=== PATIENT | female | born 1975 | race Caucasian/White ===

== ENCOUNTER 2016-07-14 19:05 | Inpatient (IN) | payer BC ==
[~2016-07-14] VITALS: Ht 170.2 cm; Wt 76.2 kg
[~2016-07-14 19:05] MED LIST: ACET500C11 PO; AZAT50TA16 PO; AZTH50T PO; CIPR-17 PO; CLOT10TR11 PO; CPR500T PO; CYCL10TA9 PO; DEXL60CA PO; FEXO1TAB42; FOLI0.4T2; HYDR-2856 PO; HYDR-707 PO; HYDR1CAP2 PO; KETO-22 PO; KETO200T PO; LMTL2.5TRX PO; LORA-794 PO; MESA1.2T PO; METR500T PO; MOTRIM; NAPR220T76 PO; OSLT75C PO; OXC5T PO; PHEN37.582; PRD10T PO; PRD20T PO; PRED10TA PO; PRM5C60 TOP; SERT50TA PO; [UNRECOGNIZED DRUG - OTHER]; ativan; lido; lidocaine viscous PO; oxy
--- OUTSIDE RECORDS SUMMARY | 2016-07-14 19:10 | XMS REPORT | Continuity of Care Document ---
Author Author [facility] Organization [facility] Address Unknown Phone Unavailable Care Team Providers Care Mobile Home Set Up Person Name Role Phone PCP Unavailable Source Comments Some departments are not documenting in the electronic medical record. If you do not see the information that you expected, contact Release of Information in the Health Information Management department at [phone] for further assistance in locating additional records.[facility] Active Allergies and Adverse Reactions Allergen Noted [...]
[2016-07-14] MEDS ORDERED: LACTATED RINGERS 1,000 ML IV ONE (19:25)
[2016-07-14] MEDS ORDERED: METOCLOPRAMIDE INJ 10 MG/2 ML (REGLAN) IVP STA (19:25)
[2016-07-14] MEDS ORDERED: ACETAMINOPHEN 500 MG TAB (TYLENOL) PO ONE (19:30)
[2016-07-14] MEDS ORDERED: ONDANSETRON 4 MG/2 ML (SDV) Z0FRAN IVP ONE (19:30)
[2016-07-14 19:31] LABS: BASOPHILS % (AUTO) 1 % (0-10); EOSINOPHILS # (AUTO) 0.1 10^3/uL (0.0-0.3); EOSINOPHILS % (AUTO) 2 % (0-10); LYMPHOCYTES # (AUTO) 0.8 X 10^3 (1.0-4.0); LYMPHOCYTES % (AUTO) 18 % (12-44); MEAN CORPUSCULAR HEMOGLOBIN 35 PG (25-34); MEAN CORPUSCULAR HGB CONC 34 G/DL (32-36); MEAN CORPUSCULAR VOLUME 103 FL (80-99); MONOCYTES # (AUTO) 0.7 X 10^3 (0.0-1.0); MONOCYTES % (AUTO) 14 % (0-12); NEUTROPHILS % (AUTO) 65 % (42-75); PLATELET COUNT 372 10^3/uL (130-400); RED BLOOD COUNT 3.62 10^6/uL (4.35-5.85); RED CELL DISTRIBUTION WIDTH 14.3 % (10.0-14.5); WHITE BLOOD COUNT 4.6 10^3/uL (4.3-11.0)
--- NOTE | 2016-07-14 19:32 | ED GI ---
General Chief Complaint: Abdominal/GI Problems Stated Complaint: FEVER/VOMITING/HEADACHE Nursing Triage Note: pt reports she was just discharged from [facility] in on 06/29/16 for food poisoning/e. coli. pt reports she started running a fever, having abdominal pain, and vomiting today. Sepsis Screen: Possible Sepsis Risk Source of Information: Patient History of Present Illness Time Seen By Provider: 19:14 Initial Comments PT STATES SHE WAS HOSPITALIZED AT [facility] IN ON 06/29/16 FOR "FOOD POISONING DUE TO E.COLI." WAS DISMISSED WITH RX FOR CIPRO AND FINISHED ON 07/11/16. WAS DOING FINE UNTIL TODAY AND ALL SYMPTOMS RETURNED EXCEPT DIARRHEA--HAS HAD EPIGASTRIC CRAMPING, NAUSEA/VOMITED X 5, FEVER OF 102. HAD NORMAL BM TODAY C/O HEADACHE NO URINARY SYMPTOMS AND VOIDED JUST PRIOR TO ARRIVAL. LMP 2011--S/P ENDOMETRIAL ABLATION, OCCASIONALLY WILL SPOT FOR 1 DAY WOKE UP THIS AM WITH A VERY SORE THROAT WELL HAS TAKEN NOTHING FOR SYMPTOMS ATE PANCAKE AND EGG THIS AM, NUTS AND DRIED FRUIT AROUND NOON--JUST PRIOR TO ONSET OF SYMPTOMS PT HAS CROHN'S DISEASE AND ALL MEDICATIONS HAD BEEN STOPPED WHILE SHE WAS ILL. RESTARTED AZATHIOPRINE THIS AM AROUND 10:00--SYMPTOMS BEGAN A COUPLE OF HOURS LATER. STATES THIS DOES NOT FEEL LIKE A CROHN'S FLARE. NO ONE ELSE HAS BEEN ILL AND ALL ATE THE SAME THINGS. PCP: DR. FOWLER--HAS SEEN HIM IN FOLLOW UP SINCE HOSPITALIZATION Allergies and Home Medications Allergies Coded Allergies: adalimumab (Unverified Allergy, Intermediate, HIVES, 02/25/16) codeine (Unverified Allergy, Unknown, 06/06/14) latex (Unverified Allergy, Unknown, 06/06/14) Uncoded Allergies: SULFA (Allergy, Unknown, 06/06/14) TAPE (Allergy, Unknown, 06/06/14) Home Medications Azathioprine 50 Mg Tablet #0 100 MG PO DAILY Prescribed by: BRIANNA MARTINEZ on 02/25/16 1640 Review of Systems Constitutional: see HPI chills fever EENTM: See HPI Throat Pain Respiratory: No Symptoms ReportedDenies Cough, Denies Shortness of Air Cardiovascular: No Symptoms Reported Gastrointestinal: See HPI Abdominal PainDenies Diarrhea, Nausea Poor Appetite Vomiting Genitourinary: No Symptoms Reported Musculoskeletal: no symptoms reported Skin: no symptoms reported Psychiatric/Neurological: See HPI HeadacheDenies Numbness, Denies Paresthesia , Denies Seizure, Denies Tingling, Denies Tremors, Denies Weakness Endocrine: No Symptoms Reported Hematologic/Lymphatic: No Symptoms Reported Past Zorvnpm-Otuzrr-Odxqey Hx Patient Social History Alcohol Use: Occasionally Uses Recreational Drug Use: No Smoking Status: Never a Smoker Recent Foreign Travel: No Contact w/Someone Who Travel: No Recent Infectious Disease Expo: No Recent Hopitalizations: Yes Physical Abuse Screen: No Sexual Abuse: No Immunizations Up To Date Tetanus Booster (TDap): Unknown Date of Pneumonia Vaccine: Apr 29, 2011 Date of Influenza Vaccine: Apr 12, 2014 Surgeries HX Surgeries: Yes ( X 3, ENDOMETRIAL ABLATION; WISDOM TEETH REMOVED) Surgeries: Section, Tonsillectomy Respiratory Hx Respiratory Disorders: No Cardiovascular Hx Cardiac Disorders: No Neurological Hx Neurological Disorders: No Reproductive System : No Hx Reproductive Disorders: Yes (S/P ENDOMETRIAL ABLATION) Female Reproductive Disorders: Menstrual Problems Genitourinary Hx Genitourinary Disorders: No Gastrointestinal Hx Gastrointestinal Disorders: Yes Gastrointestinal Disorders: Colitis, Crohns Disease Musculoskeletal Hx Musculoskeletal Disorders: No Endocrine Hx Endocrine Disorders: No HEENT HX ENT Disorders: No Cancer Hx Cancer: No Psychosocial Hx Psychiatric Problems: Yes Behavioral Health Disorders: Anxiety, Depression Integumentary HX Skin/Integumentary Disorder: No Blood Transfusions Hx Blood Disorders: No Family Medical History Family Medial History: FH: COPD (chronic obstructive pulmonary disease) 19 FATHER Hypertension 19 MOTHER G8 BROTHER No Family History of: [employer] Coordinator Physical Exam Vital Signs VS - Last 72 Hours, by Label 07/14/16 19:11 Temp 100.9 Pulse 101 Resp 18 B/P 118/72 Pulse Ox 95 O2 Delivery Room Air Capillary Refill : Less Than 3 Seconds General Appearance: WD/WN no apparent distress other (HEAVILY BUNDLED) HEENT: PERRL/EOMI TMs normal pharyngeal erythema Neck: normal inspection Respiratory: normal breath sounds no respiratory distress no accessory muscle use Cardiovascular: regular rate, rhythm no edema no JVD no murmur Gastrointestinal: normal bowel sounds soft no organomegaly no pulsatile massNo distended, No guarding, No rebound, tenderness (EPIGASTRIC)No hernia, No mass Extremities: normal inspection no pedal edema no calf tenderness normal capillary refill Back: no CVA tenderness Neurologic/Psychiatric: product manager II-XII nml as tested no motor/sensory deficits alert oriented x 3 other (ANXIOUS) Skin: normal color warm/dry Progress/Results/Core Measures Results/Orders Lab Results Laboratory Tests Test 07/14/16 19:18 07/14/16 19:30 07/14/16 20:31 Range/Units Alanine Aminotransferase (ALT/SGPT) 487 H 0-55 U/L Albumin 3.7 3.2-4.5 G/DL Alkaline Phosphatase 216 H 40-136 U/L Amylase Level 92 25-125 U/L Anion Gap 11 5-14 MMOL/L Aspartate Amino Transf (AST/SGOT) 1137 H 5-34 U/L BUN/Creatinine Ratio 9 Basophils # (Auto) 0.0 0.0-0.1 10^3/uL Basophils (%) (Auto) 1 0-10 % Blood Urea Nitrogen 8 7-18 MG/DL Calcium Level 9.1 8.5-10.1 MG/DL Carbon Dioxide Level 23 21-32 MMOL/L Chloride Level 104 98-107 MMOL/L Creatinine 0.91 0.60-1.30 MG/DL Eosinophils # (Auto) 0.1 0.0-0.3 10^3/uL Eosinophils (%) (Auto) 2 0-10 % Estimat Glomerular Filtration Rate > 60 Glucose Level 95 70-105 MG/DL Hematocrit 37 35-52 % Hemoglobin 12.5 11.5-16.0 G/DL Lipase 54 8-78 U/L Lymphocytes # (Auto) 0.8 L 1.0-4.0 X 10^3 Lymphocytes (%) (Auto) 18 12-44 % Mean Corpuscular Hemoglobin 35 H 25-34 PG Mean Corpuscular Hemoglobin Concent 34 32-36 G/DL Mean Corpuscular Volume 103 H 80-99 FL Mean Platelet Volume 9.0 7.4-10.4 FL Monocytes # (Auto) 0.7 0.0-1.0 X 10^3 Monocytes (%) (Auto) 14 H 0-12 % Monoscreen NEGATIVE NEGATIVE Neutrophils # (Auto) 3.0 1.8-7.8 X 10^3 Neutrophils (%) (Auto) 65 42-75 % Platelet Count 372 130-400 10^3/uL Potassium Level 3.8 3.6-5.0 MMOL/L Red Blood Count 3.62 L 4.35-5.85 10^6/uL Red Cell Distribution Width 14.3 10.0-14.5 % Serum Test, Qualitative NEGATIVE NEGATIVE Sodium Level 138 135-145 MMOL/L Total Bilirubin 1.4 H 0.1-1.0 MG/DL Total Protein 6.5 6.4-8.2 G/DL White Blood Count 4.6 4.3-11.0 10^3/uL Group A Streptococcus Screen NEGATIVE NEGATIVE Urine Bacteria TRACE /HPF Urine Bilirubin NEGATIVE NEGATIVE Urine Casts NONE /LPF Urine Clarity CLEAR Urine Color YELLOW Urine Crystals NONE /LPF Urine Culture Indicated NO Urine Glucose (UA) NEGATIVE NEGATIVE Urine Ketones NEGATIVE NEGATIVE Urine Leukocyte Esterase NEGATIVE NEGATIVE Urine Mucus NEGATIVE /LPF Urine Nitrite NEGATIVE NEGATIVE Urine Protein 1+ H NEGATIVE Urine RBC NONE /HPF Urine RBC (Auto) NEGATIVE NEGATIVE Urine Specific Tenino 1.015 L 1.016-1.022 Urine Squamous Epithelial Cells 5-10 /HPF Urine Urobilinogen NORMAL NORMAL MG/DL Urine WBC 2-5 /HPF Urine pH 9 5-9 My Orders Orders-CHAVOHERNANDEZ K DO Saline Lock/Iv-Start (07/14/16 19:25) Amylase (07/14/16 19:25) Cbc With Automated Diff (07/14/16 19:25) Comprehensive Metabolic Panel (07/14/16 19:25) Hcg,Qualitative Serum (07/14/16 19:25) Lipase (07/14/16 19:25) Monotest (07/14/16 19:25) Rapid Strep A Screen (07/14/16 19:25) Ua Culture If Indicated (07/14/16 19:25) Blood Culture (07/14/16 19:25) Ondansetron Injection (Zofran Injectio (07/14/16 19:30) Metoclopramide Injection (Reglan Injecti (07/14/16 19:25) Saline Lock/Iv-Start (07/14/16 19:25) Lactated Ringers (Lr 1000 Ml Iv Solution (07/14/16 19:25) Acetaminophen Tablet (Tylenol Tablet) (07/14/16 19:30) Ct Abdomen/Pelvis W (07/14/16 20:05) Hepatitis Panel Acute (07/14/16 20:05) Acute Abd Series (07/14/16 20:05) Ketorolac Injection (Toradol Injection) (07/14/16 20:15) Iohexol Injection (Omnipaque 350 Mg/Ml 1 (07/14/16 20:15) Ns (Ivpb) (Sodium Chloride 0.9% Ivpb Bag (07/14/16 20:15) Us Abdomen Complete 52894 (07/14/16 20:46) Metronidazole 500mg/100ml Ivpb (Flagyl 5 (07/14/16 22:15) Medications Given in ED Current Medications Medications Dose Ordered Sig/Estefany Route Start Time Stop Time Status Last Admin Dose Admin Acetaminophen 1,000 mg ONCE ONCE PO 07/14/16 19:30 07/14/16 19:31 DC 07/14/16 19:38 1,000 MG Iohexol 100 ml ONCE ONCE IV 07/14/16 20:15 07/14/16 20:16 DC 07/14/16 20:19 100 ML Ketorolac Tromethamine 30 mg ONCE ONCE IVP 07/14/16 20:15 07/14/16 20:16 DC 07/14/16 20:11 30 MG Lactated Ringer's 1,000 ml @ 0 mls/hr Q0M ONCE IV 07/14/16 19:25 07/14/16 19:27 DC 07/14/16 19:39 0 MLS/HR Metronidazole 100 ml @ 100 mls/hr ONCE ONCE IV 07/14/16 22:15 07/14/16 23:14 07/14/16 22:24 100 MLS/HR Ondansetron HCl 4 mg 4 mg ONCE ONCE IVP 07/14/16 19:30 07/14/16 19:31 DC 07/14/16 19:38 4 MG Sodium Chloride 100 ml 100 ml ONCE ONCE IV 07/14/16 20:15 07/14/16 20:16 DC 07/14/16 20:19 100 ML Vital Signs/I&O Vital Sign - Last 12Hours 07/14/16 19:11 Temp 100.9 Pulse 101 Resp 18 B/P 118/72 Pulse Ox 95 O2 Delivery Room Air Blood Pressure Mean: 87 Progress Note : Progress Note NAUSEA AND HEADACHE AND ABDOMINAL PAIN EASED AT TIME OF ADMIT. PT SLEPT FOR NEARLY ALL OF ER STAY Diagnostic Imaging Comments CT ABDOMEN/PELVIS--FEW SMALL GALLSTONES, CONSTIPATION OTHERWISE NO ACUTE PROCESS -PER RADIOLOGIST REPORT @ 2046 ACUTE ABDOMEN XRAYS--NO ACUTE PROCESS PER RADIOLOGIST REPORT @ 2129 ABDOMINAL ULTRASOUND--NO ACUTE PROCESS, PER RADIOLOGIST REPORT @ 2156 Reviewed: Reviewed by Me Departure Communication Progress Notes 2199--SPOKE WITH DR. FELDMAN, ACCEPTS PT FOR ADMIT. ORDERS FOR CLINDAMYCIN AND FLAGYL NOTED. Impression Impression: Primary Impression: Elevated liver enzymes Additional Impressions: Nausea & vomiting Epigastric abdominal pain History of Crohn's disease Disposition: ADMITTED INPATIENT Condition: Improved Decision to Admit Reason: Admit from ER (General) Decision to Admit/Date: Jul 14, 2016 Time/Decision to Admit Time: 22:00 Departure-Patient Inst. Referrals: SHARON FOWLER MD (PCP/Family) Primary Care Physician HERNANDEZ TONY DO Jul 14, 2016 19:31
[2016-07-14 19:54] LABS: ALANINE AMINOTRANSFERASE 487 U/L (0-55); ALBUMIN 3.7 G/DL (3.2-4.5); AMYLASE 92 U/L (25-125); ANION GAP 11 MMOL/L (5-14); ASPARTATE AMINO TRANSFERASE 1137 U/L (5-34); BILIRUBIN,TOTAL 1.4 MG/DL (0.1-1.0); BLOOD UREA NITROGEN 8 MG/DL (7-18); BUN/CREATININE RATIO 9; CALCIUM 9.1 MG/DL (8.5-10.1); CARBON DIOXIDE 23 MMOL/L (21-32); CHLORIDE 104 MMOL/L (98-107); CREATININE SERUM 0.91 MG/DL (0.60-1.30); GFR ESTIMATED > 60; GLUCOSE 95 MG/DL (70-105); LIPASE 54 U/L (8-78); POTASSIUM 3.8 MMOL/L (3.6-5.0); SODIUM 138 MMOL/L (135-145); TOTAL PROTEIN 6.5 G/DL (6.4-8.2)
[2016-07-14] MEDS ORDERED: KETOROLAC 30 MG/ML VIAL IVP ONE (20:15)
[2016-07-14] MEDS ORDERED: IOHEXOL 350 MG/ML 100 ML (OMNIPAQUE 350) VIAL IV ONE (20:15)
[2016-07-14] MEDS ORDERED: NS 100 ML (IVPB) BAG IV ONE (20:15)
--- NOTE | 2016-07-14 20:38 | Diagnostic Imaging Report ---
PROCEDURE: CT abdomen and pelvis with contrast. TECHNIQUE: Multiple contiguous axial images were obtained through the abdomen and pelvis after administration of intravenous contrast. INDICATION: Patient states recent food poisoning. Upper abdominal pain with nausea and vomiting. Comparison: 02/16/2012. Findings: The lung bases are clear. The liver appears normal. The gallbladder is normal. The bile ducts are normal. The pancreas is normal. The spleen is hypoplastic. The adrenal glands are normal. The kidneys show no evidence of obstruction or calculi. There is normal enhancement of the abdominal organs and vessels following IV contrast. There appears to be a few tiny gallstone present. The gallbladder is not distended. The gallbladder wall is not thickened. Bile ducts are not dilated. The aorta and abdominal vessels enhance in a normal fashion. The stomach and small bowel appear normal with no distended bowel loops. The colon is filled with stool from the cecum to the rectum. The appendix is not identified though no dilated structures or appendicoliths are seen. There is no fluid in the right colic gutter. No free fluid in the pelvis. No intra-abdominal adenopathy of pathologic size. IMPRESSION: 1. No evidence of ileus. There is considerable stool in the colon consistent with constipation. 2. The appendix is not definitely identified though no secondary changes are seen to suggest inflammatory process. 3. There does appear be a few tiny gallstones present though the gallbladder wall is not thickened and the bile ducts are not dilated at this time. Dictated by: Dictated on workstation # [id number]
[2016-07-14 20:45] LABS: BILIRUBIN,URINE NEGATIVE (NEGATIVE); KETONES,URINE NEGATIVE (NEGATIVE); LEUKOCYTE ESTERASE ,URINE NEGATIVE (NEGATIVE); NITRITE,URINE NEGATIVE (NEGATIVE); PH,URINE 9 (5-9); PROTEIN,URINE 1+ (NEGATIVE); UROBILINOGEN,URINE NORMAL (NORMAL)
--- NOTE | 2016-07-14 20:50 | Diagnostic Imaging Report ---
INDICATION: Recent food poisoning. FINDINGS: PA chest shows the lungs to be well-aerated and clear. There are no infiltrates. No free air under the diaphragm. There is normal appearing stool and gas pattern with no evidence of constipation. There is IV contrast noted within the kidneys and bladder which appear normal. No pathologic calcifications are present. No bony abnormalities. IMPRESSION: Normal abdomen series. Dictated by: Dictated on workstation # [id number]
--- NOTE | 2016-07-14 21:57 | Diagnostic Imaging Report ---
PROCEDURE: US abdomen complete. TECHNIQUE: Multiple real-time grayscale images were obtained over the abdomen in various projections. INDICATION: Abdominal pain with vomiting and fever. FINDINGS: Liver appears normal. Gallbladder appears normal. No gallstones. Common duct measures 7 mm. Pancreas is somewhat limited in detail though areas visualized appear normal. Spleen appears normal. The aorta and vena cava are normal. The kidneys are symmetrical and normal in appearance with no obstruction or masses. No calculi. There is no ascites. IMPRESSION: 1. The small acoustical densities noted along the anterior portion of the gallbladder on the CT scan appear to represent volume averaging with bowel. No calculi are demonstrated on this exam. Dictated by: Dictated on workstation # [id number]
[2016-07-14] MEDS ORDERED: metroNIDAZOLE 500MG/100ML IVPB 100 ML IV ONE (22:15)
[2016-07-14 23:05] VITALS: BP 113/58
[2016-07-14] MEDS ORDERED: ONDANSETRON 4 MG/2 ML (SDV) Z0FRAN IV PRN (23:45)
[2016-07-14] MEDS: fentaNYL INJECTION 100 MCG/2 ML AMP IV PRN (23:51)
[2016-07-14] MEDS: D5 1/2 NS 1000 ML IV SOLUTION 1,000 ML IV SCH (23:52)
[2016-07-14] MEDS: [UNRECOGNIZED DRUG - OTHER] IV SCH (23:52)
[2016-07-14] MEDS: DEXTROSE IV SCH (23:52)
[2016-07-14] MEDS: CLINDAMYCIN IV SCH (23:52)
[2016-07-15 04:00] VITALS: BP 99/58
[2016-07-15] MEDS: metroNIDAZOLE 500 MG/100 ML IVPB (PRE-MIX) IV SCH ×4 (04:05→23:15)
[2016-07-15] MEDS: DEXTROSE IV SCH (05:29)
[2016-07-15] MEDS: fentaNYL INJECTION 100 MCG/2 ML AMP IV PRN ×3 (05:29→20:01)
[2016-07-15] MEDS: CLINDAMYCIN IV SCH (05:29)
[2016-07-15] MEDS: [UNRECOGNIZED DRUG - OTHER] IV SCH (05:29)
[2016-07-15] MEDS: D5 1/2 NS 1000 ML IV SOLUTION 1,000 ML IV SCH ×3 (06:25→20:01)
[2016-07-15 06:32] LABS: BASOPHILS % (AUTO) 1 % (0-10); EOSINOPHILS # (AUTO) 0.2 10^3/uL (0.0-0.3); EOSINOPHILS % (AUTO) 5 % (0-10); LYMPHOCYTES % (AUTO) 24 % (12-44); MEAN CORPUSCULAR HEMOGLOBIN 34 PG (25-34); MEAN CORPUSCULAR HGB CONC 33 G/DL (32-36); MEAN CORPUSCULAR VOLUME 104 FL (80-99); MEAN PLATELET VOLUME 9.5 FL (7.4-10.4); MONOCYTES # (AUTO) 0.9 X 10^3 (0.0-1.0); MONOCYTES % (AUTO) 22 % (0-12); NEUTROPHILS % (AUTO) 49 % (42-75); PLATELET COUNT 359 10^3/uL (130-400); RED CELL DISTRIBUTION WIDTH 14.3 % (10.0-14.5); WHITE BLOOD COUNT 4.2 10^3/uL (4.3-11.0)
[2016-07-15 06:43] LABS: ALANINE AMINOTRANSFERASE 391 U/L (0-55); ALBUMIN 3.1 G/DL (3.2-4.5); AMYLASE 67 U/L (25-125); ANION GAP 8 MMOL/L (5-14); ASPARTATE AMINO TRANSFERASE 526 U/L (5-34); BILIRUBIN,TOTAL 0.6 MG/DL (0.1-1.0); BLOOD UREA NITROGEN 7 MG/DL (7-18); BUN/CREATININE RATIO 9; CALCIUM 8.1 MG/DL (8.5-10.1); CARBON DIOXIDE 23 MMOL/L (21-32); CHLORIDE 107 MMOL/L (98-107); CREATININE SERUM 0.79 MG/DL (0.60-1.30); GFR ESTIMATED > 60; GLUCOSE 89 MG/DL (70-105); LIPASE 29 U/L (8-78); POTASSIUM 3.4 MMOL/L (3.6-5.0); SODIUM 138 MMOL/L (135-145); TOTAL PROTEIN 5.4 G/DL (6.4-8.2)
[2016-07-15] MEDS ORDERED: FLU TRIvalent (5 YOA+) 2016-17 (AFLURIA) 0.5 ML IM ONE (07:30)
[2016-07-15 08:00] VITALS: BP 100/58
[2016-07-15] MEDS: METOCLOPRAMIDE INJ 10 MG/2 ML (REGLAN) IV PRN (08:32)
[2016-07-15] MEDS: PANTOPRAZOLE 40 MG/10 ML (PROTONIX) VIAL IV SCH (08:32)
[2016-07-15] MEDS ORDERED: CATHETER FLUSH 10 ML SYR IV PRN (08:45)
[2016-07-15] MEDS ORDERED: AZAT50TA PO (10:42)
[2016-07-15] MEDS: cefTRIAXone 1 GM/NS 50 ML IVPB IV SCH ×2 (11:09)
--- NOTE | 2016-07-15 11:13 | History & Physical-Hospitalist ---
HPI History of Present Illness: HPI/Chief Complaint Mrs. Andres is a 41-year-old white female with known Crohn's disease who been doing relatively well up until around when he may when she noted the onset of epigastric pain with a pleuritic component. She had fever with chills and presented to my office on the where she appeared to be in significant distress. At that time her white count was around 13,000 and better function tests were elevated her ALP and AST were in the 2-300 range and alkaline phosphatase was around 200 as well as I recall her total bilirubin was not elevated. I contacted her global chief creative officer Dr. Horta through [facility] and we set up a direct admission. CT scanning or reportedly did not reveal any significant for maladies she apparently did have a stool culture she was having significant diarrhea at that time but did reveal enterotoxigenic Escherichia coli. She was started on Cipro with improvement in her symptoms. She was discharged on 29 May and finished her round of Cipro on the with complete resolution of her symptoms as well as resolution of diarrhea. She was doing well up until yesterday afternoon when she had rather abrupt recurrence of fever and the same epigastric pain. This time however she reported no diarrhea and actually had been doing better than her usual baseline down to one formed stool per day which is little unusual for her as her baseline is usually 4-5. She had resumed azathioprine in yesterday morning. Her only other Crohn's medication is one of the newer biologic agents that she gets an injection every 8 weeks. It is been 6 weeks since her last injection. Date Seen 07/15/16 Attending Physician Sharon Fowler MD PCP Sharon Fowler MD Referring Physician Date of Admission Jul 14, 2016 at 22:48 Home Medications & Allergies Home Medications Reviewed patient Home Medication Reconciliation Form Allergies Coded Allergies: adalimumab (Unverified Allergy, Intermediate, HIVES, 02/25/16) codeine (Unverified Allergy, Unknown, 06/06/14) latex (Unverified Allergy, Unknown, 06/06/14) Uncoded Allergies: SULFA (Allergy, Unknown, 06/06/14) TAPE (Allergy, Unknown, 06/06/14) Past Txvofqq-Xvtjcn-Timeyo Hx Patient Social History Alcohol Use: Occasionally Uses Recreational Drug Use: No Smoking Status: Never a Smoker Physical Abuse Screen: No Sexual Abuse: No Recent Foreign Travel: No Contact w/other who traveled: No Recent Hopitalizations: Yes Recent Infectious Disease Expo: No Immunizations Up To Date Tetanus Booster (TDap): Unknown Date of Pneumonia Vaccine: Apr 29, 2011 Date of Influenza Vaccine: Apr 12, 2014 Seasonal Allergies Seasonal Allergies: No Surgeries HX Surgeries: Yes ( X 3, ENDOMETRIAL ABLATION; WISDOM TEETH REMOVED) Surgeries: Section, Tonsillectomy Respiratory Hx Respiratory Disorders: No Cardiovascular Hx Cardiovascular Disorders: No Neurological Hx Neurological Disorders: No Reproductive System : No Hx Reproductive Disorders: Yes (S/P ENDOMETRIAL ABLATION) Female Reproductive Disorders: Menstrual Problems Genitourinary Hx Genitourinary Disorders: No Gastrointestinal Hx Gastrointestinal Disorders: Yes Gastrointestinal Disorders: Colitis, Crohns Disease Musculoskeletal Hx Musculoskeletal Disorders: No Endocrine Hx Endocrine Disorders: No HEENT HX ENT Disorders: No Cancer Hx Cancer: No Psychosocial Hx Psychiatric Problems: Yes Behavioral Health Disorders: Anxiety, Depression Integumentary HX Skin/Integumentary Disorder: No Blood Transfusions Hx Blood Disorders: No Family Medical History Family Hx: FH: COPD (chronic obstructive pulmonary disease) 19 FATHER Hypertension 19 MOTHER G8 BROTHER No Family History of: Golf Club Facer Review of Systems Constitutional: chills diaphoresis fever malaise Respiratory: No no symptoms reported, see HPINo cough, No orthopnea, No phlegm Gastrointestinal: abdominal pain (RUQ) loss of appetite nausea (Mild) Physical Exam Physical Exam Vital Signs Vital Sign - Last 12Hours 07/14/16 19:11 Temp 100.9 Pulse 101 Resp 18 B/P 118/72 Pulse Ox 95 O2 Delivery Room Air Capillary Refill : Less Than 3 Seconds General Appearance: Mild Distress Neck: Normal Inspection Non Tender Supple Respiratory: Chest Non Tender Lungs Clear Normal Breath Sounds No Accessory Muscle Use No Respiratory Distress Cardiovascular: Regular Rate, Rhythm No Edema No Gallop No JVD No Murmur Normal Peripheral Pulses Gastrointestinal: Other (Mild epigastric pain to palpation liver edge is palpable mildly tender no nodularity noted. No evidence for splenomegaly is noted and no abdominal masses are noted. No rebound or guarding is noted) Extremity: Normal Capillary Refill Normal Inspection Normal Range of Motion Non Tender No Calf Tenderness No Pedal Edema Neurologic/Psychiatric: Alert Oriented x3 Comments Laboratory Tests 07/14/16 19:18 07/15/16 05:41 Results Results/Procedures Lab Laboratory Tests 07/14/16 19:18 07/15/16 05:41 Radiology TT scan was relatively unremarkable. There are some questionable tiny gallstones without any other evidence to suggest suggest cholecystitis. Sonography done did not reveal evidence for gallstones sluggish and also revealed no evidence to suggest acute cholecystitis. No biliary tract dilatation was reported. No other significant abdominal pathology is noted. Assessment/Plan Admission Diagnosis 1. Likely a sending cholangitis with sepsis not severe. We will resume E coli is the likely culprit. Currently however the patient is not experiencing diarrhea. With recent two-week exposure to Cipro I am concerned about the potential for resistance so will initiate Rocephin IV and continue Flagyl that was ordered in the emergency room. 2. History of Crohn's disease will need to hold azathioprine in due to concern for underlying infection and continue to monitor. Clinical Quality Measures DVT/VTE Risk/Contraindication: Risk Factor Score Per Nursin RFS Level Per Nursing on Admit: 1=Low/No VTE PPX SHARON FOWLER MD Jul 15, 2016 11:12
[2016-07-15 12:00] VITALS: BP 117/57
[2016-07-15 16:30] VITALS: BP 110/59
[2016-07-15 20:20] VITALS: BP 109/62
[2016-07-16] VITALS: BP 110/61
[2016-07-16] MEDS: fentaNYL INJECTION 100 MCG/2 ML AMP IV PRN (00:01)
[2016-07-16 04:00] VITALS: BP 99/58
[2016-07-16] MEDS: D5 1/2 NS 1000 ML IV SOLUTION 1,000 ML IV SCH ×3 (04:08→13:13)
[2016-07-16] MEDS: metroNIDAZOLE 500 MG/100 ML IVPB (PRE-MIX) IV SCH (04:08)
[2016-07-16] MEDS: METOCLOPRAMIDE INJ 10 MG/2 ML (REGLAN) IV PRN (04:13)
[2016-07-16 08:05] VITALS: BP 104/64
--- NOTE | 2016-07-16 08:35 | Progress Note-Hospitalist ---
Subjective HPI/CC On Admission Mrs. Andres is a 41-year-old white female with known Crohn's disease who been doing relatively well up until around when he may when she noted the onset of epigastric pain with a pleuritic component. She had fever with chills and presented to my office on the where she appeared to be in significant distress. At that time her white count was around 13,000 and better function tests were elevated her ALP and AST were in the 2-300 range and alkaline phosphatase was around 200 as well as I recall her total bilirubin was not elevated. I contacted her splitter hand Dr. Horta through [facility] and we set up a direct admission. CT scanning or reportedly did not reveal any significant for maladies she apparently did have a stool culture she was having significant diarrhea at that time but did reveal enterotoxigenic Escherichia coli. She was started on Cipro with improvement in her symptoms. She was discharged on 29 May and finished her round of Cipro on the with complete resolution of her symptoms as well as resolution of diarrhea. She was doing well up until yesterday afternoon when she had rather abrupt recurrence of fever and the same epigastric pain. This time however she reported no diarrhea and actually had been doing better than her usual baseline down to one formed stool per day which is little unusual for her as her baseline is usually 4-5. She had resumed azathioprine in yesterday morning. Her only other Crohn's medication is one of the newer biologic agents that she gets an injection every 8 weeks. It is been 6 weeks since her last injection. Date Seen 07/16/16 Subjective/Events-last exam patient reports no return of epigastric or right upper quadrant abdominal pain. Her biggest problem is a frontal headache. She is not prone to headaches with no migraine history and reports that this happened to her when she was admitted and on antibiotics in [place]. She had one loose nonbloody stools morning and reports that she is starting to feel a little hungry. Objective Exam Vital Signs Vital Sign - Last 12Hours 07/14/16 19:11 Temp 100.9 Pulse 101 Resp 18 B/P 118/72 Pulse Ox 95 O2 Delivery Room Air Capillary Refill : Less Than 3 Seconds General Appearance: Anxious Mild Distress (Do to headache) Neck: Full Range of Motion Supple Respiratory: Chest Non Tender Lungs Clear Normal Breath Sounds No Accessory Muscle Use No Respiratory Distress Cardiovascular: Regular Rate, Rhythm No Edema No Gallop No JVD No Murmur Normal Peripheral Pulses Gastrointestinal: Normal Bowel Sounds No Organomegaly No Pulsatile Mass Non Tender Soft Assessment/Plan Assessment and Plan Assess & Plan/Chief Complaint 1. Ascending cholangitis with sepsis resolving continue Rocephin. Liver function tests are improving we will repeat CMP in the morning. 2. History of Crohn's disease patient told to expect return to baseline bowel function which is typically 4-6 loose stools per day. 3. Headache possibly related to Flagyl significant will discontinue and give 1 dose of IV Toradol as narcotic therapy in the form of fentanyl was not helping at all. SHARON FOWLER MD Jul 16, 2016 08:35
[2016-07-16] MEDS ORDERED: KETOROLAC 30 MG/ML VIAL IVP NR (08:37)
[2016-07-16] MEDS: KCL 8 MEQ (MICRO K) TABLET PO SCH ×2 (09:50→17:45)
[2016-07-16] MEDS: cefTRIAXone 1 GM/NS 50 ML IVPB IV SCH ×2 (09:50)
[2016-07-16] MEDS: PANTOPRAZOLE 40 MG/10 ML (PROTONIX) VIAL IV SCH (09:50)
[2016-07-16 12:00] VITALS: BP 112/72
[2016-07-16] MEDS: oxyCODONE/APAP 5/325MG (PERCOCET 5) TABLET PO PRN ×3 (13:08→23:00)
[2016-07-16 15:55] VITALS: BP 101/57
[2016-07-17 00:55] VITALS: BP 102/56
[2016-07-17] MEDS: D5 1/2 NS 1000 ML IV SOLUTION 1,000 ML IV SCH (02:00)
[2016-07-17] MEDS ORDERED: KETOROLAC 30 MG/ML VIAL IVP ONE (04:30)
[2016-07-17 08:00] VITALS: BP 116/75
[2016-07-17 08:27] LABS: ALANINE AMINOTRANSFERASE 142 U/L (0-55); ANION GAP 7 MMOL/L (5-14); ASPARTATE AMINO TRANSFERASE 54 U/L (5-34); BILIRUBIN,TOTAL 0.2 MG/DL (0.1-1.0); BLOOD UREA NITROGEN 4 MG/DL (7-18); BUN/CREATININE RATIO 5; CALCIUM 8.3 MG/DL (8.5-10.1); CARBON DIOXIDE 22 MMOL/L (21-32); CHLORIDE 112 MMOL/L (98-107); CREATININE SERUM 0.77 MG/DL (0.60-1.30); GFR ESTIMATED > 60; GLUCOSE 89 MG/DL (70-105); POTASSIUM 3.6 MMOL/L (3.6-5.0); SODIUM 141 MMOL/L (135-145); TOTAL PROTEIN 5.3 G/DL (6.4-8.2)
[2016-07-17] MEDS ORDERED: KETOROLAC 30 MG/ML VIAL IVP PRN (08:30)
--- NOTE | 2016-07-17 08:36 | Progress Note-Hospitalist ---
Subjective HPI/CC On Admission Mrs. Andres is a 41-year-old white female with known Crohn's disease who been doing relatively well up until around when he may when she noted the onset of epigastric pain with a pleuritic component. She had fever with chills and presented to my office on the where she appeared to be in significant distress. At that time her white count was around 13,000 and better function tests were elevated her ALP and AST were in the 2-300 range and alkaline phosphatase was around 200 as well as I recall her total bilirubin was not elevated. I contacted her front desk agent Dr. Horta through [facility] and we set up a direct admission. CT scanning or reportedly did not reveal any significant for maladies she apparently did have a stool culture she was having significant diarrhea at that time but did reveal enterotoxigenic Escherichia coli. She was started on Cipro with improvement in her symptoms. She was discharged on 29 May and finished her round of Cipro on the with complete resolution of her symptoms as well as resolution of diarrhea. She was doing well up until yesterday afternoon when she had rather abrupt recurrence of fever and the same epigastric pain. This time however she reported no diarrhea and actually had been doing better than her usual baseline down to one formed stool per day which is little unusual for her as her baseline is usually 4-5. She had resumed azathioprine in yesterday morning. Her only other Crohn's medication is one of the newer biologic agents that she gets an injection every 8 weeks. It is been 6 weeks since her last injection. Date Seen 07/17/16 Subjective/Events-last exam patient did get relief from her headache after Toradol but it returned last night. She did not sleep well still has a right-sided headache this morning. There was no significant benefit to oxycodone. It is been a while but she had had similar headache in the past. She denies photophobia and the only other changes that she's developed blisters on her lip compatible with previous herpes labialis history. She's had low-grade temperature reports no recurrence of epigastric pain or nausea. She is tolerating solids. Objective Exam Vital Signs Vital Sign - Last 12Hours 07/14/16 19:11 Temp 100.9 Pulse 101 Resp 18 B/P 118/72 Pulse Ox 95 O2 Delivery Room Air Capillary Refill : Less Than 3 Seconds General Appearance: Anxious Mild Distress HEENT: Other (blisters on left side of upper lip otherwise unremarkable exam.) Neck: Full Range of Motion Normal Inspection Respiratory: Chest Non Tender Lungs Clear Normal Breath Sounds No Accessory Muscle Use No Respiratory Distress Cardiovascular: Regular Rate, Rhythm No Edema No Gallop No JVD No Murmur Normal Peripheral Pulses Gastrointestinal: Normal Bowel Sounds No Organomegaly No Pulsatile Mass Non Tender Soft Comments Laboratory Tests 07/17/16 07:50: Alanine Aminotransferase (ALT/SGPT) 142H, Albumin 3.0L, Alkaline Phosphatase 126 , Anion Gap 7, Aspartate Amino Transf (AST/SGOT) 54H, BUN/Creatinine Ratio 5, Blood Urea Nitrogen 4L, Calcium Level 8.3L, Carbon Dioxide Level 22, Chloride Level 112H, Creatinine 0.77, Estimat Glomerular Filtration Rate > 60, Glucose Level 89, Potassium Level 3.6, Sodium Level 141, Total Bilirubin 0.2, Total Protein 5.3L Microbiology 07/14/16 Blood Culture - Preliminary, Resulted No growth 07/14/16 Throat Culture - Final, Complete No Beta Strep isolated Results/Procedures Lab Laboratory Tests 07/17/16 07:50 Assessment/Plan Assessment and Plan Assess & Plan/Chief Complaint 1. Ascending cholangitis with sepsis resolving continue Rocephin. Liver function tests are improving nearly back to normal. 2. History of Crohn's disease patient told to expect return to baseline bowel function which is typically 4-6 loose stools per day. 3. herpes labialis will initiate Valtrex 1 g every 12 4. Likely migraine headache will initiate Imitrex discussed side effects including neck tightness and considering improving liver function tests when necessary order for Toradol. 5. Generalized anxiety with secondary insomnia and will resume at bedtime lorazepam. Likely discharge in the morning. SHARON FOWLER MD Jul 17, 2016 08:36
[2016-07-17] MEDS ORDERED: SUMAtriptan 50 MG (IMITREX) TAB PO NR (08:38)
[2016-07-17] MEDS: PANTOPRAZOLE 40 MG/10 ML (PROTONIX) VIAL IV SCH (09:31)
[2016-07-17] MEDS: cefTRIAXone 1 GM/NS 50 ML IVPB IV SCH ×2 (09:31)
[2016-07-17] MEDS: KCL 8 MEQ (MICRO K) TABLET PO SCH ×2 (09:38→18:43)
[2016-07-17] MEDS: VALACYCLOVIR 500 MG TAB (VALTREX) PO SCH ×2 (09:38→21:40)
[2016-07-17 16:20] VITALS: BP 108/71
[2016-07-17] MEDS ORDERED: FLU TRIvalent (5 YOA+) 2016-17 (AFLURIA) 0.5 ML IM ONE (18:15)
[2016-07-17] MEDS ORDERED: LORazepam 1 MG (ATIVAN) TAB PO SCH (21:00)
[2016-07-18 08:00] VITALS: BP 107/74
[2016-07-18] MEDS ORDERED: FLU TRIvalent (5 YOA+) 2016-17 (AFLURIA) 0.5 ML IM ONE (08:17)
[2016-07-18] MEDS: KCL 8 MEQ (MICRO K) TABLET PO SCH (08:34)
[2016-07-18] MEDS: VALACYCLOVIR 500 MG TAB (VALTREX) PO SCH (08:34)
[2016-07-18] MEDS: PANTOPRAZOLE 40 MG/10 ML (PROTONIX) VIAL IV SCH (08:35)
[2016-07-18] MEDS: cefTRIAXone 1 GM/NS 50 ML IVPB IV SCH ×2 (08:35)
[2016-07-18] MEDS ORDERED: CEFD300C3 PO (12:04)
[2016-07-18 13:10] VITALS: BP 107/74
--- NOTE | 2016-07-18 13:21 | Discharge Summary-Hospitalist ---
Diagnosis/Chief Complaint Date of Admission Jul 14, 2016 at 22:48 Date of Discharge Discharge Date: Jul 18, 2016 Admission Diagnosis 1. Likely a sending cholangitis with sepsis not severe. We will resume E coli is the likely culprit. Currently however the patient is not experiencing diarrhea. With recent two-week exposure to Cipro I am concerned about the potential for resistance so will initiate Rocephin IV and continue Flagyl that was ordered in the emergency room. 2. History of Crohn's disease will need to hold azathioprine in due to concern for underlying infection and continue to monitor. Discharge Diagnosis 1. Ascending cholangitis with sepsis resolving continue Rocephin. Liver function tests are improving nearly back to normal. 2. History of Crohn's disease patient told to expect return to baseline bowel function which is typically 4-6 loose stools per day. 3. herpes labialis 4. Acute migraine without aura. Reason Hospital Visit/Course Mrs. Andres is a 41-year-old white female with known Crohn's disease who been doing relatively well up until around when he may when she noted the onset of epigastric pain with a pleuritic component. She had fever with chills and presented to my office on the where she appeared to be in significant distress. At that time her white count was around 13,000 and better function tests were elevated her ALP and AST were in the 2-300 range and alkaline phosphatase was around 200 as well as I recall her total bilirubin was not elevated. I contacted her manager banking Dr. Horta through [facility] and we set up a direct admission. CT scanning or reportedly did not reveal any significant for maladies she apparently did have a stool culture she was having significant diarrhea at that time but did reveal enterotoxigenic Escherichia coli. She was started on Cipro with improvement in her symptoms. She was discharged on 29 May and finished her round of Cipro on the with complete resolution of her symptoms as well as resolution of diarrhea. She was doing well up until yesterday afternoon when she had rather abrupt recurrence of fever and the same epigastric pain. This time however she reported no diarrhea and actually had been doing better than her usual baseline down to one formed stool per day which is little unusual for her as her baseline is usually 4-5. She had resumed azathioprine in yesterday morning. Her only other Crohn's medication is one of the newer biologic agents that she gets an injection every 8 weeks. It is been 6 weeks since her last injection. Hospital course: IV fluids were initiated in addition to IV antibiotics. I did switch her from fluoroquinolone therapy out of concerns of resistance due to recent use switching to Rocephin. She had resolution of epigastric pain within 48 hours with defervesced since of fever and was feeling much better. She was not able to sleep well the hospital did develop a right sided headache that responded to Imitrex after nonresponse to IV fentanyl compatible with migraine without aura. Liver function tests return to near normal with no recurrence of abdominal pain. Her symptoms are most suggestive underlying ascending cholangitis with recurrence. If she continues to have problems may need to consider further biliary tract imaging as with her chronic Crohn's disease she is at risk for sclerosing cholangitis in addition to other probably more common causes of biliary obstruction. This is despite the fact that no abnormalities have been noted on CT scanning of the abdomen. DT scanning of the abdomen and pelvis reveals some questionable tiny gallstones without gallbladder wall thickening or biliary tract dilatation. The pancreas was unremarkable as was the liver. Subsequent sonogram did not reveal any evidence for sludge or stone formation. The patient's Imuran that she takes for Crohn's disease was held she is on a biologic agent and we'll need to see how much of it impacted has on infection fighting she is not due for further 2 weeks. She will hold her Imuran but likely resume it when I see her back in the office next week for follow-up. Her hospital course was also complicated by herpes labialis for which she was given Valtrex. She does have acyclovir at home and will take 800 mg 4 times a day until I see her next week. In addition Cefdinir 300 mg twice a day after meals was called out to be taken for at least a week. Discharge Summary Discharge Physical Examination Allergies: Coded Allergies: adalimumab (Unverified Allergy, Intermediate, HIVES, 02/25/16) codeine (Unverified Allergy, Unknown, 06/06/14) gluten (Verified Allergy, Unknown, 07/16/16) latex (Unverified Allergy, Unknown, 06/06/14) milk (Verified Allergy, Unknown, 07/16/16) Uncoded Allergies: SULFA (Allergy, Unknown, 06/06/14) TAPE (Allergy, Unknown, 06/06/14) Vitals & I&Os Vital Signs Date Time Temp Pulse Resp B/P Pulse Ox O2 Delivery O2 Flow Rate FiO2 07/17/16 16:20 97.5 66 18 108/71 98 Room Air Hospital Course Labs (last 24 hrs) Microbiology 07/14/16 Blood Culture - Preliminary, Resulted No growth 07/14/16 Throat Culture - Final, Complete No Beta Strep isolated Discharge Home Medications: Active Scripts Active Cefdinir 300 Mg Capsule 300 Mg PO BID Instructions to patient/family Please see electonic discharge instructions given to patient. Clinical Quality Measures DVT/VTE Risk/Contraindication: Risk Factor Score Per Nursin RFS Level Per Nursing on Admit: 1=Low/No VTE PPX SHARON FOWLER MD Jul 18, 2016 13:21
== END 2016-07-18 13:10 | disposition home or self-care (01) | DRG 872 ==
LOC: EDUNIT# 19:05 → ER 19:06 → 4TH 22:48
PROVIDERS: ADMIT Internal Medicine; ATTEND Internal Medicine
DX: A41.51 Sepsis due to Escherichia coli [E. coli] (principal); K83.0 Cholangitis; B96.20 Unspecified Escherichia coli [E. coli] as the cause of diseases classified elsewhere; K50.90 Crohn's disease, unspecified, without complications; F32.9 Major depressive disorder, single episode, unspecified; F41.1 Generalized anxiety disorder; G43.909 Migraine, unspecified, not intractable, without status migrainosus; B00.1 Herpesviral vesicular dermatitis; Z23 Encounter for immunization
CPT/HCPCS: 36415; 74022; 74177; 76700; 80053; 80074; 81000; 82150; 83690; 84703; 85025; 86308; 87040; 87430; 96365; 96375

== ENCOUNTER 2016-07-28 12:49 | Outpatient (RCR) | payer BC ==
--- OUTSIDE RECORDS SUMMARY | 2016-06-02 12:53 | XMS REPORT | Continuity of Care Document ---
Author Author [facility] Organization [facility] Address Unknown Phone Unavailable Care Team Providers Care Clinical Trial Assistant Name Role Phone PCP Unavailable Source Comments Some departments are not documenting in the electronic medical record. If you do not see the information that you expected, contact Release of Information in the Health Information Management department at [phone] for further assistance in locating additional records.[facility] Active Allergies and Adverse Reactions Allergen Noted Date Severity Reactions Comments Codeine 11/18/2012 RASH Mesalamine 11/18/2012 DIARRHEA Current Medications Prescription Sig. Disp. Refills Start End Date Status Date MULTIVITAMINS WITH Take by mouth. Active FLUORIDE (MULTI-VITAMIN PO) POTASSIUM (POTASSIMIN PO) Take by mouth. Active zinc Active ERGOCALCIFEROL (VITAMIN Take by mouth. Active D2) (VITAMIN D PO) RASPBERRY FLAVOR Take by mouth. Active (RASPBERRY PO) itraconazole (SPORONAX) 100MG DAILY X 7 DAYS 7 Cap 1 11/19/19 Active 100 mg capsule 13 triamcinolone(#) 0.01% in Twice a day to the 5 g 4 11/19/19 Active absorbase (KENALOG) 0.01 affected area 13 % Active Problems Problem Noted Date Crohn's disease (HCC) 11/18/2012 Overview: [facility] doc [facility]. Recurrent oral ulcers 11/18/2012 Overview: Oropharyngeal. NO erythematous base like herpes Social History Tobacco Use Types Packs/Day Years Used Date Current Every Day Smoker Cigarettes Alcohol Use Drinks/Week oz/Week Comments Yes Last Filed Vital Signs Vital Sign Reading Time Taken Blood Pressure 117/71 11/18/2012 8:24 AM CDT Pulse 88 11/18/2012 8:24 AM CDT Temperature - - Respiratory Rate - - Height 1.702 m (5' 7") 11/18/2012 8:24 AM CDT Weight 73.936 kg (163 lb) 11/18/2012 8:24 AM CDT Body Mass Index 25.52 11/18/2012 8:24 AM CDT Oxygen Saturation - - Plan of Care Health Maintenance Due Date Last Done Comments Physical (Comprehensive) 1983 Exam Pertussis Vaccine 1987 Tetanus Vaccine 1993 Cervical Cancer Screening 1997 Influenza Vaccine 02/28/2016 Results from Last 3 Months Not on file
[2016-06-02 13:22] LABS: BASOPHILS % (AUTO) 1 % (0-10); EOSINOPHILS # (AUTO) 0.5 10^3/uL (0.0-0.3); EOSINOPHILS % (AUTO) 9 % (0-10); LYMPHOCYTES # (AUTO) 1.1 X 10^3 (1.0-4.0); LYMPHOCYTES % (AUTO) 22 % (12-44); MEAN CORPUSCULAR HEMOGLOBIN 35 PG (25-34); MEAN CORPUSCULAR HGB CONC 34 G/DL (32-36); MEAN CORPUSCULAR VOLUME 103 FL (80-99); MEAN PLATELET VOLUME 9.3 FL (7.4-10.4); MONOCYTES # (AUTO) 0.9 X 10^3 (0.0-1.0); MONOCYTES % (AUTO) 16 % (0-12); NEUTROPHILS # (AUTO) 2.7 X 10^3 (1.8-7.8); NEUTROPHILS % (AUTO) 52 % (42-75); PLATELET COUNT 266 10^3/uL (130-400); RED BLOOD COUNT 3.42 10^6/uL (4.35-5.85); RED CELL DISTRIBUTION WIDTH 17.3 % (10.0-14.5); WHITE BLOOD COUNT 5.2 10^3/uL (4.3-11.0)
[2016-06-02] MEDS: NORMAL SALINE IV SCH (13:30)
[2016-06-02] MEDS: VEDOLIZUMAB IV SCH (13:30)
[2016-06-02 13:41] LABS: ALANINE AMINOTRANSFERASE 16 U/L (0-55); ALBUMIN 3.6 G/DL (3.2-4.5); ANION GAP 8 MMOL/L (5-14); ASPARTATE AMINO TRANSFERASE 25 U/L (5-34); BLOOD UREA NITROGEN 10 MG/DL (7-18); BUN/CREATININE RATIO 14; CALCIUM 8.7 MG/DL (8.5-10.1); CARBON DIOXIDE 23 MMOL/L (21-32); CHLORIDE 108 MMOL/L (98-107); CREATININE SERUM 0.73 MG/DL (0.60-1.30); GFR ESTIMATED > 60; GLUCOSE 81 MG/DL (70-105); POTASSIUM 3.8 MMOL/L (3.6-5.0); SODIUM 139 MMOL/L (135-145)
[2016-06-02 14:13] VITALS: BP 93/55
[2016-06-02 14:33] LABS: BILIRUBIN,TOTAL 0.3 MG/DL (0.1-1.0)
[~2016-07-28] VITALS: Ht 170.2 cm; Wt 76.2 kg
[~2016-07-28 12:49] MED LIST changes: +ACETAMINOPHEN 325 MG TABLET/CAPLET (TYLENOL) PO PRN; +AZAT50TA PO; +CATHETER FLUSH 10 ML SYR IV PRN; +CEFD300C3 PO; +EPINEPHrine INJECTION 1 MG/ML AMP IM PRN; +diphenhydrAMINE 25 MG TAB (BENADRYL) PO PRN
[2016-07-28 13:09] LABS: BASOPHILS % (AUTO) 1 % (0-10); EOSINOPHILS # (AUTO) 0.4 10^3/uL (0.0-0.3); EOSINOPHILS % (AUTO) 5 % (0-10); LYMPHOCYTES # (AUTO) 1.7 X 10^3 (1.0-4.0); LYMPHOCYTES % (AUTO) 25 % (12-44); MEAN CORPUSCULAR HEMOGLOBIN 35 PG (25-34); MEAN CORPUSCULAR HGB CONC 34 G/DL (32-36); MEAN CORPUSCULAR VOLUME 102 FL (80-99); MEAN PLATELET VOLUME 9.2 FL (7.4-10.4); MONOCYTES # (AUTO) 0.8 X 10^3 (0.0-1.0); MONOCYTES % (AUTO) 12 % (0-12); NEUTROPHILS % (AUTO) 58 % (42-75); PLATELET COUNT 295 10^3/uL (130-400); RED BLOOD COUNT 3.47 10^6/uL (4.35-5.85); RED CELL DISTRIBUTION WIDTH 14.1 % (10.0-14.5); WHITE BLOOD COUNT 6.9 10^3/uL (4.3-11.0)
[2016-07-28 13:15] VITALS: BP 99/55
[2016-07-28] MEDS: VEDOLIZUMAB IV SCH (13:15)
[2016-07-28] MEDS: NORMAL SALINE IV SCH (13:15)
[2016-07-28 13:28] LABS: ALANINE AMINOTRANSFERASE 17 U/L (0-55); ALBUMIN 3.7 G/DL (3.2-4.5); ANION GAP 5 MMOL/L (5-14); ASPARTATE AMINO TRANSFERASE 18 U/L (5-34); BILIRUBIN,TOTAL 0.3 MG/DL (0.1-1.0); BLOOD UREA NITROGEN 12 MG/DL (7-18); BUN/CREATININE RATIO 13; CARBON DIOXIDE 27 MMOL/L (21-32); CHLORIDE 107 MMOL/L (98-107); CREATININE SERUM 0.96 MG/DL (0.60-1.30); GFR ESTIMATED > 60; GLUCOSE 70 MG/DL (70-105); POTASSIUM 3.7 MMOL/L (3.6-5.0); SODIUM 139 MMOL/L (135-145); TOTAL PROTEIN 6.3 G/DL (6.4-8.2)
== END 2016-08-31 | disposition home or self-care (01) ==
LOC: SDC 12:49
PROVIDERS: ATTEND Internal Medicine
DX: K51.011 Ulcerative (chronic) pancolitis with rectal bleeding (principal)
CPT/HCPCS: 36415; 80053; 85025; 96365

== ENCOUNTER 2016-11-17 12:28 | Outpatient (RCR) | payer BC ==
[2016-09-22] MEDS: VEDOLIZUMAB 300 MG/NS 250 ML IVPB IV SCH ×2 (13:39)
[2016-09-22 14:05] VITALS: BP 105/78
[~2016-11-17] VITALS: Ht 170.2 cm; Wt 76.2 kg
[~2016-11-17 12:28] MED LIST changes: -ACETAMINOPHEN 325 MG TABLET/CAPLET (TYLENOL) PO PRN; -CATHETER FLUSH 10 ML SYR IV PRN; -EPINEPHrine INJECTION 1 MG/ML AMP IM PRN; -diphenhydrAMINE 25 MG TAB (BENADRYL) PO PRN
[2016-11-17 12:30] VITALS: BP 111/71
[2016-11-17 12:54] LABS: BASOPHILS # (AUTO) 0.1 10^3/uL (0.0-0.1); BASOPHILS % (AUTO) 1 % (0-10); EOSINOPHILS # (AUTO) 1.5 10^3/uL (0.0-0.3); EOSINOPHILS % (AUTO) 20 % (0-10); LYMPHOCYTES # (AUTO) 1.5 X 10^3 (1.0-4.0); LYMPHOCYTES % (AUTO) 20 % (12-44); MEAN CORPUSCULAR HEMOGLOBIN 32 PG (25-34); MEAN CORPUSCULAR HGB CONC 33 G/DL (32-36); MEAN CORPUSCULAR VOLUME 96 FL (80-99); MEAN PLATELET VOLUME 9.3 FL (7.4-10.4); MONOCYTES # (AUTO) 0.8 X 10^3 (0.0-1.0); MONOCYTES % (AUTO) 11 % (0-12); NEUTROPHILS # (AUTO) 3.6 X 10^3 (1.8-7.8); NEUTROPHILS % (AUTO) 48 % (42-75); PLATELET COUNT 302 10^3/uL (130-400); RED BLOOD COUNT 3.89 10^6/uL (4.35-5.85); RED CELL DISTRIBUTION WIDTH 13.9 % (10.0-14.5); WHITE BLOOD COUNT 7.5 10^3/uL (4.3-11.0)
[2016-11-17 13:07] LABS: BAND NEUTROPHILS 0 %; BASOPHILS % (MANUAL) 2 %; EOSINOPHILS % (MANUAL) 26 %; LYMPHOCYTES % (MANUAL) 21 %; NEUTROPHILS % (MANUAL) 45 %
[2016-11-17 13:11] LABS: ALANINE AMINOTRANSFERASE 16 U/L (0-55); ALBUMIN 3.6 G/DL (3.2-4.5); ANION GAP 7 MMOL/L (5-14); ASPARTATE AMINO TRANSFERASE 19 U/L (5-34); BILIRUBIN,TOTAL 0.3 MG/DL (0.1-1.0); BLOOD UREA NITROGEN 14 MG/DL (7-18); BUN/CREATININE RATIO 17; CALCIUM 9.1 MG/DL (8.5-10.1); CARBON DIOXIDE 27 MMOL/L (21-32); CHLORIDE 106 MMOL/L (98-107); CREATININE SERUM 0.82 MG/DL (0.60-1.30); GFR ESTIMATED > 60; GLUCOSE 89 MG/DL (70-105); POTASSIUM 3.4 MMOL/L (3.6-5.0); SODIUM 140 MMOL/L (135-145); TOTAL PROTEIN 5.9 G/DL (6.4-8.2)
[2016-11-17] MEDS: VEDOLIZUMAB 300 MG/NS 250 ML IVPB IV SCH ×2 (13:11)
== END 2016-12-21 | disposition home or self-care (01) ==
LOC: SDC 12:28
PROVIDERS: ATTEND Internal Medicine
DX: K51.011 Ulcerative (chronic) pancolitis with rectal bleeding (principal)
CPT/HCPCS: 36415; 80053; 85007; 85027; 96365

== ENCOUNTER 2017-01-12 12:50 | Outpatient (RCR) | payer BC ==
[~2017-01-12] VITALS: Ht 170.2 cm; Wt 76.2 kg
[2017-01-12 12:53] VITALS: BP 104/72
[2017-01-12] MEDS ORDERED: VEDOLIZUMAB 300 MG/NS 250 ML IVPB IV SCH ×2 (13:04)
[2017-01-12 13:52] LABS: BASOPHILS % (AUTO) 1 % (0-10); EOSINOPHILS # (AUTO) 0.9 10^3/uL (0.0-0.3); EOSINOPHILS % (AUTO) 12 % (0-10); LYMPHOCYTES # (AUTO) 1.4 X 10^3 (1.0-4.0); LYMPHOCYTES % (AUTO) 18 % (12-44); MEAN CORPUSCULAR HEMOGLOBIN 32 PG (25-34); MEAN CORPUSCULAR HGB CONC 33 G/DL (32-36); MEAN CORPUSCULAR VOLUME 98 FL (80-99); MEAN PLATELET VOLUME 9.1 FL (7.4-10.4); MONOCYTES # (AUTO) 0.9 X 10^3 (0.0-1.0); MONOCYTES % (AUTO) 12 % (0-12); NEUTROPHILS # (AUTO) 4.2 X 10^3 (1.8-7.8); NEUTROPHILS % (AUTO) 57 % (42-75); PLATELET COUNT 313 10^3/uL (130-400); RED BLOOD COUNT 3.82 10^6/uL (4.35-5.85); RED CELL DISTRIBUTION WIDTH 14.9 % (10.0-14.5); WHITE BLOOD COUNT 7.4 10^3/uL (4.3-11.0)
[2017-01-12 14:13] LABS: ALANINE AMINOTRANSFERASE 30 U/L (0-55); ALBUMIN 3.5 GM/DL (3.2-4.5); ANION GAP 7 MMOL/L (5-14); ASPARTATE AMINO TRANSFERASE 19 U/L (5-34); BILIRUBIN,TOTAL 0.2 MG/DL (0.1-1.0); BLOOD UREA NITROGEN 14 MG/DL (7-18); BUN/CREATININE RATIO 16; CALCIUM 8.8 MG/DL (8.5-10.1); CARBON DIOXIDE 24 MMOL/L (21-32); CHLORIDE 106 MMOL/L (98-107); CREATININE SERUM 0.87 MG/DL (0.60-1.30); GFR ESTIMATED > 60; GLUCOSE 79 MG/DL (70-105); POTASSIUM 3.8 MMOL/L (3.6-5.0); SODIUM 137 MMOL/L (135-145); TOTAL PROTEIN 6.1 GM/DL (6.4-8.2)
== END 2017-03-28 | disposition home or self-care (01) ==
LOC: SDC 12:50
PROVIDERS: ATTEND Internal Medicine
DX: K51.011 Ulcerative (chronic) pancolitis with rectal bleeding (principal)
CPT/HCPCS: 36415; 80053; 85025; 96365

== ENCOUNTER 2017-03-09 12:38 | Outpatient (RCR) | payer BC ==
[~2017-03-09] VITALS: Ht 170.2 cm; Wt 76.2 kg
[2017-03-09] MEDS ORDERED: VEDOLIZUMAB 300 MG/NS 250 ML IVPB IV SCH ×4 (12:46→13:00)
[2017-03-09] MEDS ORDERED: ACETAMINOPHEN 325 MG TABLET/CAPLET (TYLENOL) PO PRN (13:00)
[2017-03-09] MEDS ORDERED: EPINEPHrine INJECTION 1 MG/ML AMP IM PRN (13:00)
[2017-03-09] MEDS ORDERED: diphenhydrAMINE 50 MG/ML INJ (BENADRYL) IV PRN (13:00)
[2017-03-09] MEDS ORDERED: diphenhydrAMINE 25 MG TAB (BENADRYL) PO PRN (13:00)
[2017-03-09 14:02] VITALS: BP 106/81
== END 2017-03-28 | disposition home or self-care (01) ==
LOC: SDC 12:38
PROVIDERS: ATTEND Internal Medicine
DX: K51.00 Ulcerative (chronic) pancolitis without complications (principal)
CPT/HCPCS: 96365

== ENCOUNTER 2017-06-30 12:33 | Outpatient (RCR) | payer BC ==
[2017-05-04 12:58] VITALS: BP 104/71
[2017-05-04 13:20] LABS: BASOPHILS % (AUTO) 0 % (0-10); EOSINOPHILS # (AUTO) 0.6 10^3/uL (0.0-0.3); EOSINOPHILS % (AUTO) 7 % (0-10); HEMATOCRIT 40 % (35-52); HEMOGLOBIN 13.1 G/DL (11.5-16.0); LYMPHOCYTES % (AUTO) 21 % (12-44); MEAN CORPUSCULAR HEMOGLOBIN 32 PG (25-34); MEAN CORPUSCULAR HGB CONC 33 G/DL (32-36); MEAN CORPUSCULAR VOLUME 95 FL (80-99); MEAN PLATELET VOLUME 9.3 FL (7.4-10.4); MONOCYTES # (AUTO) 0.8 X 10^3 (0.0-1.0); MONOCYTES % (AUTO) 8 % (0-12); NEUTROPHILS # (AUTO) 6.2 X 10^3 (1.8-7.8); NEUTROPHILS % (AUTO) 64 % (42-75); PLATELET COUNT 304 10^3/uL (130-400); RED BLOOD COUNT 4.14 10^6/uL (4.35-5.85); RED CELL DISTRIBUTION WIDTH 14.2 % (10.0-14.5); WHITE BLOOD COUNT 9.7 10^3/uL (4.3-11.0)
[2017-05-04 13:41] LABS: ALBUMIN 3.8 GM/DL (3.2-4.5); BILIRUBIN,TOTAL 0.3 MG/DL (0.1-1.0); CALCIUM 9.1 MG/DL (8.5-10.1); CREATININE SERUM 1.02 MG/DL (0.60-1.30); TOTAL PROTEIN 6.5 GM/DL (6.4-8.2)
[2017-05-04] MEDS: VEDOLIZUMAB 300 MG/NS 250 ML IVPB IV SCH ×2 (13:49)
[~2017-06-30] VITALS: Ht 170.2 cm; Wt 76.2 kg
[~2017-06-30 12:33] MED LIST changes: +ACETAMINOPHEN 325 MG TABLET/CAPLET (TYLENOL) PO PRN; +EPINEPHrine INJECTION 1 MG/ML AMP IM PRN; +diphenhydrAMINE 25 MG TAB (BENADRYL) PO PRN; +diphenhydrAMINE 50 MG/ML INJ (BENADRYL) IV PRN
[2017-06-30 12:35] VITALS: BP 114/68
[2017-06-30] MEDS: VEDOLIZUMAB 300 MG/NS 250 ML IVPB IV SCH ×2 (13:05)
[2017-06-30 13:07] LABS: BASOPHILS % (AUTO) 0 % (0-10); EOSINOPHILS % (AUTO) 0 % (0-10); HEMATOCRIT 38 % (35-52); HEMOGLOBIN 12.8 G/DL (11.5-16.0); LYMPHOCYTES # (AUTO) 0.9 X 10^3 (1.0-4.0); LYMPHOCYTES % (AUTO) 9 % (12-44); MEAN CORPUSCULAR HEMOGLOBIN 32 PG (25-34); MEAN CORPUSCULAR HGB CONC 34 G/DL (32-36); MEAN CORPUSCULAR VOLUME 94 FL (80-99); MEAN PLATELET VOLUME 9.2 FL (7.4-10.4); MONOCYTES # (AUTO) 0.3 X 10^3 (0.0-1.0); MONOCYTES % (AUTO) 3 % (0-12); NEUTROPHILS # (AUTO) 8.9 X 10^3 (1.8-7.8); NEUTROPHILS % (AUTO) 89 % (42-75); PLATELET COUNT 354 10^3/uL (130-400); RED BLOOD COUNT 4.06 10^6/uL (4.35-5.85); RED CELL DISTRIBUTION WIDTH 14.3 % (10.0-14.5)
[2017-06-30 13:27] LABS: ALANINE AMINOTRANSFERASE 77 U/L (0-55); ALBUMIN 3.7 GM/DL (3.2-4.5); ALKALINE PHOSPHATASE 115 U/L (40-136); BILIRUBIN,TOTAL 0.3 MG/DL (0.1-1.0); BUN/CREATININE RATIO 19; CALCIUM 9.1 MG/DL (8.5-10.1); CARBON DIOXIDE 28 MMOL/L (21-32); CHLORIDE 106 MMOL/L (98-107); CREATININE SERUM 0.83 MG/DL (0.60-1.30); GFR ESTIMATED > 60; GLUCOSE 101 MG/DL (70-105); POTASSIUM 3.8 MMOL/L (3.6-5.0); SODIUM 141 MMOL/L (135-145); TOTAL PROTEIN 6.5 GM/DL (6.4-8.2)
[2017-06-30 13:39] LABS: BAND NEUTROPHILS 1 %; BASOPHILS % (MANUAL) 0 %; EOSINOPHILS % (MANUAL) 0 %; LYMPHOCYTES % (MANUAL) 7 %; MONOCYTES % (MANUAL) 1 %; NEUTROPHILS % (MANUAL) 91 %; TARGET CELLS SLIGHT
== END 2017-08-02 | disposition home or self-care (01) ==
LOC: SDC 12:33
PROVIDERS: ATTEND Internal Medicine Gastroenterology
DX: K51.00 Ulcerative (chronic) pancolitis without complications (principal)
CPT/HCPCS: 36415; 80053; 85007; 85025; 85027; 96365

== ENCOUNTER 2017-10-20 12:08 | Outpatient (RCR) | payer BC, OTHER ==
[2017-08-25 12:54] VITALS: BP 107/69
[2017-08-25 13:05] LABS: BASOPHILS % (AUTO) 0 % (0-10); EOSINOPHILS # (AUTO) 0.1 10^3/uL (0.0-0.3); EOSINOPHILS % (AUTO) 1 % (0-10); HEMATOCRIT 39 % (35-52); HEMOGLOBIN 13.2 G/DL (11.5-16.0); LYMPHOCYTES # (AUTO) 0.5 X 10^3 (1.0-4.0); LYMPHOCYTES % (AUTO) 5 % (12-44); MEAN CORPUSCULAR HEMOGLOBIN 31 PG (25-34); MEAN CORPUSCULAR HGB CONC 34 G/DL (32-36); MEAN CORPUSCULAR VOLUME 93 FL (80-99); MEAN PLATELET VOLUME 9.2 FL (7.4-10.4); MONOCYTES # (AUTO) 0.6 X 10^3 (0.0-1.0); MONOCYTES % (AUTO) 6 % (0-12); NEUTROPHILS # (AUTO) 8.8 X 10^3 (1.8-7.8); NEUTROPHILS % (AUTO) 88 % (42-75); PLATELET COUNT 327 10^3/uL (130-400); RED CELL DISTRIBUTION WIDTH 14.2 % (10.0-14.5)
[2017-08-25 13:25] LABS: ALANINE AMINOTRANSFERASE 26 U/L (0-55); ALBUMIN 3.8 GM/DL (3.2-4.5); ALKALINE PHOSPHATASE 77 U/L (40-136); BILIRUBIN,TOTAL 0.3 MG/DL (0.1-1.0); BUN/CREATININE RATIO 24; CALCIUM 8.9 MG/DL (8.5-10.1); CARBON DIOXIDE 25 MMOL/L (21-32); CHLORIDE 105 MMOL/L (98-107); CREATININE SERUM 0.79 MG/DL (0.60-1.30); GFR ESTIMATED > 60; GLUCOSE 89 MG/DL (70-105); POTASSIUM 3.5 MMOL/L (3.6-5.0); SODIUM 137 MMOL/L (135-145); TOTAL PROTEIN 6.6 GM/DL (6.4-8.2)
[2017-08-25 13:48] LABS: BAND NEUTROPHILS 3 %; BASOPHILS % (MANUAL) 0 %; EOSINOPHILS % (MANUAL) 0 %; LYMPHOCYTES % (MANUAL) 5 %; MONOCYTES % (MANUAL) 8 %; NEUTROPHILS % (MANUAL) 84 %; TARGET CELLS SLIGHT
[~2017-10-20] VITALS: Ht 170.2 cm; Wt 76.2 kg
[~2017-10-20 12:08] MED LIST changes: +VEDOLIZUMAB 300 MG/NS 250 ML IVPB IV ONE
[2017-10-20] MEDS ORDERED: VEDOLIZUMAB 300 MG/NS 250 ML IVPB IV SCH ×2 (12:15)
[2017-10-20 12:40] LABS: BASOPHILS % (AUTO) 1 % (0-10); EOSINOPHILS % (AUTO) 11 % (0-10); HEMATOCRIT 39 % (35-52); HEMOGLOBIN 12.9 G/DL (11.5-16.0); LYMPHOCYTES # (AUTO) 1.6 X 10^3 (1.0-4.0); LYMPHOCYTES % (AUTO) 19 % (12-44); MEAN CORPUSCULAR HEMOGLOBIN 30 PG (25-34); MEAN CORPUSCULAR HGB CONC 33 G/DL (32-36); MEAN CORPUSCULAR VOLUME 91 FL (80-99); MONOCYTES # (AUTO) 0.8 X 10^3 (0.0-1.0); MONOCYTES % (AUTO) 10 % (0-12); NEUTROPHILS # (AUTO) 5.2 X 10^3 (1.8-7.8); NEUTROPHILS % (AUTO) 60 % (42-75); PLATELET COUNT 377 10^3/uL (130-400); RED BLOOD COUNT 4.29 10^6/uL (4.35-5.85); RED CELL DISTRIBUTION WIDTH 14.9 % (10.0-14.5); WHITE BLOOD COUNT 8.6 10^3/uL (4.3-11.0)
[2017-10-20 12:59] LABS: ALANINE AMINOTRANSFERASE 23 U/L (0-55); ALBUMIN 3.9 GM/DL (3.2-4.5); ALKALINE PHOSPHATASE 70 U/L (40-136); BILIRUBIN,TOTAL 0.3 MG/DL (0.1-1.0); BUN/CREATININE RATIO 22; CALCIUM 8.9 MG/DL (8.5-10.1); CARBON DIOXIDE 25 MMOL/L (21-32); CHLORIDE 108 MMOL/L (98-107); CREATININE SERUM 0.88 MG/DL (0.60-1.30); GFR ESTIMATED > 60; GLUCOSE 84 MG/DL (70-105); POTASSIUM 3.8 MMOL/L (3.6-5.0); SODIUM 138 MMOL/L (135-145); TOTAL PROTEIN 6.3 GM/DL (6.4-8.2)
[2017-10-20 13:08] VITALS: BP 98/69
== END 2017-11-23 | disposition home or self-care (01) ==
LOC: SDC 12:08
PROVIDERS: ATTEND Internal Medicine Gastroenterology
DX: K51.00 Ulcerative (chronic) pancolitis without complications (principal)
CPT/HCPCS: 36415; 80053; 85007; 85025; 85027; 96365

== ENCOUNTER 2017-12-15 12:17 | Outpatient (RCR) | payer BC, OTHER ==
[~2017-12-15] VITALS: Ht 170.2 cm; Wt 76.2 kg
[~2017-12-15 12:17] MED LIST changes: -ACETAMINOPHEN 325 MG TABLET/CAPLET (TYLENOL) PO PRN; -EPINEPHrine INJECTION 1 MG/ML AMP IM PRN; -VEDOLIZUMAB 300 MG/NS 250 ML IVPB IV ONE; -diphenhydrAMINE 25 MG TAB (BENADRYL) PO PRN; -diphenhydrAMINE 50 MG/ML INJ (BENADRYL) IV PRN
[2017-12-15 12:25] VITALS: BP 96/51
[2017-12-15] MEDS ORDERED: VEDOLIZUMAB 300 MG/NS 250 ML IVPB IV SCH ×2 (12:25)
[2017-12-15 12:47] LABS: BASOPHILS % (AUTO) 0 % (0-10); EOSINOPHILS # (AUTO) 0.4 10^3/uL (0.0-0.3); EOSINOPHILS % (AUTO) 6 % (0-10); HEMATOCRIT 37 % (35-52); HEMOGLOBIN 12.3 G/DL (11.5-16.0); LYMPHOCYTES # (AUTO) 1.6 X 10^3 (1.0-4.0); LYMPHOCYTES % (AUTO) 22 % (12-44); MEAN CORPUSCULAR HEMOGLOBIN 30 PG (25-34); MEAN CORPUSCULAR HGB CONC 33 G/DL (32-36); MEAN CORPUSCULAR VOLUME 91 FL (80-99); MEAN PLATELET VOLUME 9.6 FL (7.4-10.4); MONOCYTES # (AUTO) 1.1 X 10^3 (0.0-1.0); MONOCYTES % (AUTO) 15 % (0-12); NEUTROPHILS # (AUTO) 4.2 X 10^3 (1.8-7.8); NEUTROPHILS % (AUTO) 57 % (42-75); PLATELET COUNT 333 10^3/uL (130-400); RED BLOOD COUNT 4.04 10^6/uL (4.35-5.85); RED CELL DISTRIBUTION WIDTH 15.1 % (10.0-14.5); WHITE BLOOD COUNT 7.3 10^3/uL (4.3-11.0)
[2017-12-15 13:00] LABS: ALANINE AMINOTRANSFERASE 28 U/L (0-55); ALBUMIN 3.5 GM/DL (3.2-4.5); ALKALINE PHOSPHATASE 64 U/L (40-136); BILIRUBIN,TOTAL 0.3 MG/DL (0.1-1.0); BUN/CREATININE RATIO 21; CALCIUM 9.2 MG/DL (8.5-10.1); CARBON DIOXIDE 26 MMOL/L (21-32); CHLORIDE 111 MMOL/L (98-107); CREATININE SERUM 0.72 MG/DL (0.60-1.30); GFR ESTIMATED > 60; GLUCOSE 101 MG/DL (70-105); POTASSIUM 4.3 MMOL/L (3.6-5.0); SODIUM 143 MMOL/L (135-145)
[2017-12-15 13:35] VITALS: BP 118/64
== END 2018-03-15 | disposition home or self-care (01) ==
LOC: SDC 12:17
PROVIDERS: ATTEND Internal Medicine Gastroenterology
DX: K51.00 Ulcerative (chronic) pancolitis without complications (principal)
CPT/HCPCS: 36415; 80053; 85025; 96365

== ENCOUNTER 2018-02-09 12:55 | Outpatient (RCR) | payer BC ==
[~2018-02-09] VITALS: Ht 170.2 cm; Wt 76.2 kg
[2018-02-09] MEDS ORDERED: VEDOLIZUMAB 300 MG/NS 250 ML IVPB IV SCH ×4 (13:06→13:15)
[2018-02-09] MEDS ORDERED: ACETAMINOPHEN 325 MG TABLET PO PRN (13:15)
[2018-02-09] MEDS ORDERED: EPINEPHrine INJECTION 1 MG/ML AMP IM PRN (13:15)
[2018-02-09] MEDS ORDERED: diphenhydrAMINE 25 MG TAB (BENADRYL) PO PRN (13:15)
[2018-02-09] MEDS ORDERED: diphenhydrAMINE 50 MG/ML INJ (BENADRYL) IV PRN (13:15)
[2018-02-09 13:24] LABS: BASOPHILS % (AUTO) 0 % (0-10); EOSINOPHILS # (AUTO) 0.4 10^3/uL (0.0-0.3); EOSINOPHILS % (AUTO) 5 % (0-10); HEMATOCRIT 40 % (35-52); HEMOGLOBIN 13.4 G/DL (11.5-16.0); LYMPHOCYTES # (AUTO) 1.6 X 10^3 (1.0-4.0); LYMPHOCYTES % (AUTO) 20 % (12-44); MEAN CORPUSCULAR HEMOGLOBIN 30 PG (25-34); MEAN CORPUSCULAR HGB CONC 33 G/DL (32-36); MEAN CORPUSCULAR VOLUME 91 FL (80-99); MEAN PLATELET VOLUME 9.5 FL (7.4-10.4); MONOCYTES # (AUTO) 0.6 X 10^3 (0.0-1.0); MONOCYTES % (AUTO) 8 % (0-12); NEUTROPHILS # (AUTO) 5.3 X 10^3 (1.8-7.8); NEUTROPHILS % (AUTO) 67 % (42-75); PLATELET COUNT 354 10^3/uL (130-400); RED BLOOD COUNT 4.46 10^6/uL (4.35-5.85)
[2018-02-09 13:40] LABS: ALANINE AMINOTRANSFERASE 19 U/L (0-55); ALBUMIN 4.2 GM/DL (3.2-4.5); ALKALINE PHOSPHATASE 84 U/L (40-136); BILIRUBIN,TOTAL 0.2 MG/DL (0.1-1.0); BUN/CREATININE RATIO 15; CALCIUM 9.3 MG/DL (8.5-10.1); CARBON DIOXIDE 26 MMOL/L (21-32); CHLORIDE 105 MMOL/L (98-107); CREATININE SERUM 0.86 MG/DL (0.60-1.30); GFR ESTIMATED > 60; GLUCOSE 83 MG/DL (70-105); POTASSIUM 4.2 MMOL/L (3.6-5.0); SODIUM 137 MMOL/L (135-145); TOTAL PROTEIN 7.3 GM/DL (6.4-8.2)
[2018-02-09 14:45] VITALS: BP 104/66
== END 2018-02-26 | disposition home or self-care (01) ==
LOC: SDC 12:55
PROVIDERS: ATTEND Internal Medicine Gastroenterology
DX: K51.011 Ulcerative (chronic) pancolitis with rectal bleeding (principal)
CPT/HCPCS: 36415; 80053; 85025; 96365

== ENCOUNTER 2018-04-09 12:46 | Outpatient (RCR) | payer BC ==
[~2018-04-09] VITALS: Ht 170.2 cm; Wt 76.2 kg
[2018-04-09] MEDS ORDERED: VEDOLIZUMAB 300 MG/NS 250 ML IVPB IV SCH ×2 (12:57)
[2018-04-09] MEDS ORDERED: LIDOCAINE 1% INJ 20 ML 20 ML VIAL ONE (13:01)
[2018-04-09 13:29] LABS: BASOPHILS # (AUTO) 0.1 10^3/uL (0.0-0.1); BASOPHILS % (AUTO) 1 % (0-10); EOSINOPHILS # (AUTO) 0.5 10^3/uL (0.0-0.3); EOSINOPHILS % (AUTO) 7 % (0-10); HEMATOCRIT 41 % (35-52); HEMOGLOBIN 13.6 G/DL (11.5-16.0); LYMPHOCYTES # (AUTO) 1.8 X 10^3 (1.0-4.0); LYMPHOCYTES % (AUTO) 23 % (12-44); MEAN CORPUSCULAR HEMOGLOBIN 31 PG (25-34); MEAN CORPUSCULAR HGB CONC 34 G/DL (32-36); MEAN CORPUSCULAR VOLUME 92 FL (80-99); MEAN PLATELET VOLUME 9.2 FL (7.4-10.4); MONOCYTES # (AUTO) 0.6 X 10^3 (0.0-1.0); MONOCYTES % (AUTO) 8 % (0-12); NEUTROPHILS # (AUTO) 4.8 X 10^3 (1.8-7.8); NEUTROPHILS % (AUTO) 62 % (42-75); PLATELET COUNT 334 10^3/uL (130-400); RED BLOOD COUNT 4.41 10^6/uL (4.35-5.85); RED CELL DISTRIBUTION WIDTH 18.2 % (10.0-14.5); WHITE BLOOD COUNT 7.7 10^3/uL (4.3-11.0)
[2018-04-09 13:50] LABS: ALANINE AMINOTRANSFERASE 111 U/L (0-55); ALBUMIN 4.8 GM/DL (3.2-4.5); ALKALINE PHOSPHATASE 114 U/L (40-136); BILIRUBIN,TOTAL 0.8 MG/DL (0.1-1.0); BUN/CREATININE RATIO 16; CALCIUM 9.9 MG/DL (8.5-10.1); CARBON DIOXIDE 21 MMOL/L (21-32); CHLORIDE 103 MMOL/L (98-107); CREATININE SERUM 1.08 MG/DL (0.60-1.30); GFR ESTIMATED 56; GLUCOSE 68 MG/DL (70-105); POTASSIUM 3.8 MMOL/L (3.6-5.0); SODIUM 137 MMOL/L (135-145)
[2018-04-09 14:10] VITALS: BP 118/86
== END 2018-04-09 14:10 | disposition home or self-care (01) ==
LOC: SDC 12:46
PROVIDERS: ATTEND Internal Medicine Gastroenterology
DX: K51.00 Ulcerative (chronic) pancolitis without complications (principal)
CPT/HCPCS: 36415; 80053; 85025; 96365; 96366; J3380

== ENCOUNTER 2018-06-04 13:09 | Outpatient (RCR) | payer BC ==
[~2018-06-04] VITALS: Ht 170.2 cm; Wt 76.2 kg
[2018-06-04] MEDS ORDERED: ACETAMINOPHEN 325 MG TABLET PO PRN (13:30)
[2018-06-04] MEDS ORDERED: diphenhydrAMINE 25 MG TAB (BENADRYL) PO PRN (13:30)
[2018-06-04] MEDS ORDERED: VEDOLIZUMAB 300 MG/NS 250 ML IVPB IV SCH ×2 (13:30)
[2018-06-04] MEDS ORDERED: EPINEPHrine INJECTION 1 MG/ML AMP IM PRN (13:45)
[2018-06-04 13:46] LABS: BASOPHILS % (AUTO) 0 % (0-10); EOSINOPHILS # (AUTO) 1.1 10^3/uL (0.0-0.3); EOSINOPHILS % (AUTO) 12 % (0-10); HEMATOCRIT 38 % (35-52); HEMOGLOBIN 12.7 G/DL (11.5-16.0); LYMPHOCYTES # (AUTO) 1.7 X 10^3 (1.0-4.0); LYMPHOCYTES % (AUTO) 19 % (12-44); MEAN CORPUSCULAR HEMOGLOBIN 32 PG (25-34); MEAN CORPUSCULAR HGB CONC 33 G/DL (32-36); MEAN CORPUSCULAR VOLUME 95 FL (80-99); MEAN PLATELET VOLUME 8.8 FL (7.4-10.4); MONOCYTES % (AUTO) 11 % (0-12); NEUTROPHILS # (AUTO) 5.3 X 10^3 (1.8-7.8); NEUTROPHILS % (AUTO) 59 % (42-75); PLATELET COUNT 451 10^3/uL (130-400); RED CELL DISTRIBUTION WIDTH 16.5 % (10.0-14.5)
[2018-06-04 14:01] VITALS: BP 97/73
[2018-06-04 14:08] LABS: ALANINE AMINOTRANSFERASE 335 U/L (0-55); ALBUMIN 3.6 GM/DL (3.2-4.5); ALKALINE PHOSPHATASE 920 U/L (40-136); BILIRUBIN,TOTAL 0.6 MG/DL (0.1-1.0); BUN/CREATININE RATIO 18; CALCIUM 9.5 MG/DL (8.5-10.1); CARBON DIOXIDE 23 MMOL/L (21-32); CHLORIDE 101 MMOL/L (98-107); CREATININE SERUM 0.83 MG/DL (0.60-1.30); GFR ESTIMATED > 60; GLUCOSE 83 MG/DL (70-105); POTASSIUM 3.9 MMOL/L (3.6-5.0); SODIUM 135 MMOL/L (135-145); TOTAL PROTEIN 7.4 GM/DL (6.4-8.2)
== END 2018-09-02 | disposition home or self-care (01) ==
LOC: SDC 13:09
PROVIDERS: ATTEND Internal Medicine Gastroenterology
DX: K51.00 Ulcerative (chronic) pancolitis without complications (principal)
CPT/HCPCS: 36415; 80053; 85025; 96365; J3380

== ENCOUNTER → 2018-06-17 | Outpatient (CLI) | payer BC ==
--- NOTE | 2018-06-17 09:51 | Diagnostic Imaging Report ---
PROCEDURE: US Gallbladder. TECHNIQUE: Multiple real-time grayscale images were obtained over the right upper quadrant in various projections. INDICATION: Elevated liver enzymes. Liver is enlarged at 20 cm. No discrete liver mass is identified. The portal vein is patent and shows normal direction of flow. Gallbladder does appear to be slightly contracted. No gallstones are seen. No definite wall thickening or pericholecystic fluid is seen. No biliary duct dilatation is identified. Pancreas is unremarkable. Right kidney is unremarkable. There is no ascites. IMPRESSION: 1. Mild hepatomegaly. 2. Contracted gallbladder without evidence of gallstones or evidence of acute cholecystitis. Dictated by: Dictated on workstation # [id number]
== END ==
LOC: RAD 07:11
PROVIDERS: ATTEND Internal Medicine Gastroenterology
DX: K82.0 Obstruction of gallbladder (principal); R16.0 Hepatomegaly, not elsewhere classified
CPT/HCPCS: 76705

== ENCOUNTER 2019-05-04 05:40 | Outpatient (CLI) | payer BC ==
[~2019-05-04] VITALS: Ht 170 cm; Wt 75.0 kg
[2019-05-04] MEDS ORDERED: LEVO100T7 PO (15:06)
[2019-05-06] MEDS ORDERED: PRD20T PO (10:20)
== END 2019-05-04 15:38 | disposition home or self-care (01) ==
LOC: PREOP 05:40
PROVIDERS: ATTEND Internal Medicine
DX: Z01.818 Encounter for other preprocedural examination (principal)

== ENCOUNTER 2019-05-06 07:10 | Day surgery (SDC) | payer BC ==
--- NOTE | 2019-05-02 13:22 | HISTORY AND PHYSICAL ---
DATE OF SERVICE: 05/06/2019 COLONOSCOPY HISTORY AND PHYSICAL HISTORY OF PRESENT ILLNESS: The patient is a 43-year-old white female with at least a 9-year history of ulcerative colitis who had actually stopped therapy of her own accord a little over a year ago and had been doing relatively well up until roughly the 04/12/2019, when she developed rather abrupt onset of watery nonbloody diarrhea 5 to 6 loose stools per day with a prominent postprandial components. She denied nocturnal stool and denied night sweats, chills or fever with some occasional mild lower abdominal cramping. No one else that she was aware of was sick and there has been no travel history. She also one year ago had undergone a screening colonoscopy at which time an adenomatous polyp was removed. It was recommended by Dr. Horta previous package delivery driver that she undergo repeat surveillance colonoscopy in one year. For insurance purposes she is unable to see him. She reports that her weight is stable. PAST MEDICAL HISTORY: Significant for likely irritable bowel syndrome as well. In regards to her ulcerative colitis she was initially started on prednisone with bridging 5-ASA therapy, but did not attain remission. She did not get along with Imuran and switched to biologic therapy that she did relatively well for to begin with, but then developed elevated liver function testing. At one point, ALT and AST were in the 400 to 600 range with elevations in alkaline phosphatase in the 200 to 300 range without total bilirubin elevation. Medication was discontinued and she has persisted in much lower levels of liver function test elevation on 03/30/2019. Her alkaline phosphatase was 140 with an AST of 48 and an ALT of 51. 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 Other than p.r.n. Lomotil she is on no other prescription medication at this time and is not taking any ehic-elx-jhtkrxf supplements. PAST SURGICAL HISTORY: She reports no significant past surgical history. FAMILY HISTORY: She is not aware of any family history for colon cancer or inflammatory bowel disease. PHYSICAL EXAMINATION: GENERAL: Revealed an anxious white female who did not appear to be in acute distress. VITAL SIGNS: Weight is 167 pounds, was down 7 pounds from 5 months ago. Blood pressure 110/70 with a heart rate of 72 and regular. This is her baseline. HEENT: Unremarkable. Sclerae nonicteric. NECK: Revealed no JVD, adenopathy or bruits. CHEST: Clear to auscultation. CARDIOVASCULAR: Revealed a regular rate and rhythm without murmur, S3 or S4. ABDOMEN: Soft, supple, nondistended without mass or organomegaly. No tenderness to palpation was noted. EXTREMITIES: Reveal no cyanosis, clubbing or edema. SKIN: Evaluation revealed no evidence for rash. ASSESSMENT AND PLAN: The patient is being set up for surveillance colonoscopy due to past history of ulcerative colitis as well as colonic adenoma removed one year ago. She is currently on no medication therapy and that she has likely had ulcerative colitis for 10+ years being diagnosed a little over 9 years ago. We will plan on surveillance biopsies. I did discuss the fact that we will need to see whether or not off therapy. Her symptoms are indicative of recurrent irritable bowel are more compatible with infection. I suspect the latter as her symptoms have improved with no anti-inflammatory therapy. Job ID: [id number] DocumentID: [id number] Dictated Date: 04/22/2019 09:31:16 Drop Wire Builder Date: 04/22/2019 10:27:02 Dictated By: SHARON FOWLER MD
[~2019-05-06] VITALS: Ht 170 cm; Wt 75.0 kg
[~2019-05-06 07:10] MED LIST changes: +LEVO100T7 PO
[2019-05-06] MEDS ORDERED: LACTATED RINGERS 1,000 ML IV ONE (07:22)
[2019-05-06 07:30] VITALS: BP 97/65
--- NOTE | 2019-05-06 07:59 | Pre-Op Note & Conscious Sedat ---
Pre-Operative Progress Note H&P Reviewed The H&P was reviewed, patient examined and no changes noted. Date H&P Reviewed: May 06, 2019 Time H&P Reviewed: 07:58 Conscious Sedation Pre-Proced ASA Score 2 For ASA 3 and 4: Consider anesthesia and medical clearance. Also, for patients with a history of failed moderate sedation consider anesthesia. Airway Lungs Heart ASA score ASA 1: a normal healthy patient ASA 2: a patient with a mild systemic disease (mid diabetes, controlled hypertension, obesity ASA 3: a patient with a severe systemic disease that limits activity (angina, COPD, prior Myocardial infarction) ASA 4: a patient with an incapacitating disease that is a constant threat to life (CHF, renal failure) ASA 5: a moribund patient not expected to survive 24 hrs. (ruptured aneurysm) ASA 6: a declared brain- patient whose organs are being harvested. For emergent operations, add the letter E after the classification Mallampati Classification Grade 1 Sedation Plan Analgesia, Amnesia, Plan communicated to team members, Discussed options with patient/fam, Discussed risks with patient/fam The patient is an appropriate candidate to undergo the planned procedure, sedation, and anesthesia. The patient immediately re-assessed prior to indication. SHARON FOWLER MD May 06, 2019 07:59 POS
[2019-05-06] MEDS ORDERED: LIDOCAINE PF 2% 5 ML (XYLOCAINE) VIAL ONE (08:13)
[2019-05-06] MEDS ORDERED: PROPOFOL INJECTION 50 ML IV ONE (08:13)
[2019-05-06] MEDS ORDERED: MIDAZOLAM 2 MG/2 ML (VERSED) VIAL ONE (08:13)
[2019-05-06] MEDS ORDERED: fentaNYL INJECTION 100 MCG/2 ML AMP ONE (08:13)
[2019-05-06 09:10] VITALS: BP 103/65
[2019-05-06 09:15] VITALS: BP 104/66
[2019-05-06 09:45] VITALS: BP 97/68
[2019-05-06 09:56] VITALS: BP 97/68
--- NOTE | 2019-05-06 10:12 | Anesthesia-General Post-Op ---
MAC Patient Condition Mental Status/LOC: Same as Preop Cardiovascular: Satisfactory Nausea/Vomiting: Absent Respiratory: Satisfactory Pain: Controlled Complications: Absent Post Op Complications Complications None Follow Up Care/Instructions Patient Instructions None needed. Anesthesiology Discharge Order Discharge Order Patient was seen this morning after the procedure and she was doing well, no complaints, stable vital signs, no apparent adverse anesthesia problems. TY MULLINS DO May 06, 2019 10:12 POS
[2019-05-06] MEDS ORDERED: PRD20T PO (10:20)
--- NOTE | 2019-05-06 18:34 | OPERATIVE REPORT ---
DATE OF SERVICE: COLONOSCOPY SUMMARY INDICATION FOR THE PROCEDURE: Surveillance, history of ulcerative colitis, recent diarrhea. The patient was placed in left lateral decubitus position. Because of history of IBS and sensitivity, procedure was under Diprivan anesthesia, which she tolerated without difficulty. Digital rectal evaluation was performed. Anal sphincter tone was normal and the perianal reflexes intact. No abnormalities were noted on digital inspection of anal canal or distal rectal vault. The colonoscope was then inserted into the rectum and under direct visualization advanced to cecum. The cecum was identified by identification of ileocecal valve and cecal strap. Distal 10 cm of terminal ileum were inspected as well. The patient tolerated the procedure well. FINDINGS: The patient exhibited evidence for pancolitis with loss of the usual vascular markings. There were scattered shallow areas of ulceration and one inflammatory polyp was noted in the descending colon, which was biopsied and ablated. Disease was more prevalent involving the rectum and sigmoid colon, but to a lesser extent extended to the cecum. Photographs were obtained and surveillance biopsies from the cecum, proximal ascending colon, mid ascending colon, proximal transverse colon, distal transverse colon, descending colon, sigmoid colon and rectum were obtained. The patient has been on a fair number of medications in the past including biologic therapy. We will initiate prednisone at 20 mg b.i.d., which she has tolerated well in the past. She had taken herself off of medication and had been off of medication for several years. She will return to the office in 2 weeks and we will discuss additional therapy using prednisone only as bridging therapy and likely begin a taper depending on her response in 2 weeks. No other abnormalities were noted on today's procedure. The terminal ileum was unremarkable. No diverticulum were noted. Job ID: [id number] DocumentID: [id number] Dictated Date: 05/06/2019 10:43:43 Director Behavioral Health Date: 05/06/2019 18:33:34 Dictated By: SHARON FOWLER MD MTDD
== END 2019-05-06 10:01 | disposition home or self-care (01) ==
LOC: ENDO 07:10
PROVIDERS: ATTEND Internal Medicine
DX: Z09 Encounter for follow-up examination after completed treatment for conditions other than malignant neoplasm (principal); K51.40 Inflammatory polyps of colon without complications; K63.3 Ulcer of intestine; K51.90 Ulcerative colitis, unspecified, without complications; E06.3 Autoimmune thyroiditis; Z79.899 Other long term (current) drug therapy

== ENCOUNTER → 2019-06-06 | Outpatient (CLI) | payer BC ==
[~2019-06-06] MED LIST changes: +FERR325T18 PO; +HYDR-700 PO; +LEVO88TA54 PO; +LOPE2CAP PO; +MELA10TA3 PO; +MULT1CAP27 PO; +OXYC1TAB87 PO; +TOFA10TA PO; +TRIA1CAP4 PO
--- NOTE | 2019-06-10 07:44 | Diagnostic Imaging Report ---
Digital mammogram. Indication: Bilateral screening. The study was compared to the prior exam of 05/07/2018. At this time there are no current complaints. The current study was also evaluated with a Computer Aided Detection (CAD) system. FINDINGS: The fibroglandular tissue in both breasts is heterogeneously dense. This does limit the sensitivity of this exam. Overall, there does not appear to have been any significant change when compared to the prior study. No primary or secondary sign of malignancy is noted. IMPRESSION: There is no radiographic evidence for malignancy. ACR BI-RADS Category 1: Negative. Result letter will be mailed to the patient. Note: At least 10% of breast cancer is not imaged by mammography. Dictated by: Dictated on workstation # [id number]
== END ==
LOC: RAD 11:26
PROVIDERS: ATTEND Obstetrics & Gynecology
DX: Z12.31 Encounter for screening mammogram for malignant neoplasm of breast (principal)
CPT/HCPCS: 77067

== ENCOUNTER 2019-07-29 12:09 | Outpatient (CLI) | payer BC ==
[~2019-07-29] VITALS: Ht 170 cm; Wt 81.0 kg
[~2019-07-29 12:09] MED LIST changes: -FERR325T18 PO; -HYDR-700 PO; -LEVO88TA54 PO; -LOPE2CAP PO; -MELA10TA3 PO; -MULT1CAP27 PO; -OXYC1TAB87 PO; -TOFA10TA PO; -TRIA1CAP4 PO
[2019-07-29] MEDS ORDERED: LOPE2CAP PO (12:25)
[2019-07-29] MEDS ORDERED: TRIA1CAP4 PO (12:25)
[2019-07-29] MEDS ORDERED: MULT1CAP27 PO (12:25)
[2019-07-29] MEDS ORDERED: TOFA10TA PO (12:25)
[2019-07-29] MEDS ORDERED: FERR325T18 PO (12:25)
[2019-07-29] MEDS ORDERED: LEVO88TA54 PO (12:25)
[2019-07-29 13:09] LABS: BASOPHILS % (AUTO) 0 % (0-10); EOSINOPHILS # (AUTO) 0.1 10^3/uL (0.0-0.3); EOSINOPHILS % (AUTO) 1 % (0-10); HEMATOCRIT 38 % (35-52); HEMOGLOBIN 12.3 G/DL (11.5-16.0); LYMPHOCYTES # (AUTO) 2.1 X 10^3 (1.0-4.0); LYMPHOCYTES % (AUTO) 40 % (12-44); MEAN CORPUSCULAR HEMOGLOBIN 28 PG (25-34); MEAN CORPUSCULAR HGB CONC 33 G/DL (32-36); MEAN CORPUSCULAR VOLUME 87 FL (80-99); MEAN PLATELET VOLUME 9.5 FL (7.4-10.4); MONOCYTES # (AUTO) 0.7 X 10^3 (0.0-1.0); MONOCYTES % (AUTO) 13 % (0-12); NEUTROPHILS # (AUTO) 2.4 X 10^3 (1.8-7.8); NEUTROPHILS % (AUTO) 46 % (42-75); PLATELET COUNT 310 10^3/uL (130-400); RED CELL DISTRIBUTION WIDTH 22.5 % (10.0-14.5); WHITE BLOOD COUNT 5.2 10^3/uL (4.3-11.0)
== END 2019-07-29 12:30 | disposition home or self-care (01) ==
LOC: PREOP 12:09
PROVIDERS: ATTEND Obstetrics & Gynecology
DX: Z01.812 Encounter for preprocedural laboratory examination (principal); Z11.2 Encounter for screening for other bacterial diseases; N93.8 Other specified abnormal uterine and vaginal bleeding
CPT/HCPCS: 36415; 85025; 86850; 86900; 86901; 87081

== ENCOUNTER 2019-10-31 05:41 | Outpatient (CLI) | payer BC ==
[~2019-10-31] VITALS: Ht 170 cm; Wt 84.0 kg
[~2019-10-31 05:41] MED LIST changes: +FERR325T18 PO; +HYDR-700 PO; +LEVO88TA54 PO; +LOPE2CAP PO; +MELA10TA3 PO; +MULT1CAP27 PO; +OXYC1TAB87 PO; +TOFA10TA PO; +TRIA1CAP4 PO
[2019-10-31] MEDS ORDERED: FURO40TA4 PO (15:01)
[2019-10-31] MEDS ORDERED: TOFA5TAB PO (15:01)
[2019-10-31] MEDS ORDERED: LEVO25TA5 PO (15:01)
[2019-10-31] MEDS ORDERED: SPIR25TA5 PO (15:01)
== END 2019-10-31 15:20 ==
LOC: PREOP 05:41
PROVIDERS: ATTEND Internal Medicine
DX: Z01.818 Encounter for other preprocedural examination (principal); Z11.59 Encounter for screening for other viral diseases
CPT/HCPCS: 87635

== ENCOUNTER → 2020-01-03 | Outpatient (CLI) | payer BC ==
[~2020-01-03] MED LIST changes: +FURO40TA4 PO; +LEVO25TA5 PO; +SPIR25TA5 PO; +TOFA5TAB PO
--- NOTE | 2020-01-04 11:36 | Diagnostic Imaging Report ---
EXAMINATION: Nuclear medicine I-123 thyroid uptake and scan. INDICATION: Hyperthyroidism. TECHNIQUE: The patient received 202 uCi of I-123 by mouth. A 4-hour uptake and 24-hour uptake/scan were performed. COMPARISON: None. FINDINGS: The thyroid gland appears normal in size. Uptake is homogeneous. No substernal thyroid is identified. 4-hour uptake is 16.4% and 24-hour uptake is 36.6% (normal 24-hour uptake range is 10-30%). IMPRESSION: Mild increased thyroid uptake at 4 and 24 hours is compatible with given history of hyperthyroidism, possibly representing Graves' disease. No hot/cold nodule is identified. Dictated by: Dictated on workstation # [id number]
== END ==
LOC: CARD 10:27
PROVIDERS: ATTEND Internal Medicine
DX: E05.90 Thyrotoxicosis, unspecified without thyrotoxic crisis or storm (principal)
CPT/HCPCS: 78014; A9516

== ENCOUNTER 2020-01-25 08:55 | Outpatient (RCR) | payer BC ==
[2020-03-05] MEDS ORDERED: METH500T7 PO (11:16)
[2020-03-05] MEDS ORDERED: ACHD5005 PO (11:22)
== END 2020-04-24 | disposition home or self-care (01) ==
LOC: ONC 08:55
PROVIDERS: ATTEND Radiology Radiation Oncology
DX: K50.90 Crohn's disease, unspecified, without complications (principal); E05.00 Thyrotoxicosis with diffuse goiter without thyrotoxic crisis or storm; M19.90 Unspecified osteoarthritis, unspecified site; Z86.2 Personal history of diseases of the blood and blood-forming organs and certain disorders involving the immune mechanism; Z90.710 Acquired absence of both cervix and uterus; Z98.890 Other specified postprocedural states; Z90.89 Acquired absence of other organs
CPT/HCPCS: 99204

== ENCOUNTER 2020-03-05 09:15 | Emergency (ER) | payer BC ==
[~2020-03-05] VITALS: Ht 170 cm; Wt 84.0 kg
--- NOTE | 2020-03-05 09:42 | ED Chest Pain ---
General Stated Complaint: SOB;SORE THROAT Source: patient Exam Limitations: no limitations History of Present Illness Date Seen by Provider: Mar 05, 2020 Time Seen by Provider: 09:22 Initial Comments The patient presents ER by private conveyance with chief complaint of a spasmodic, hitching pain in her right ribs inferior to the right breast and wrapping around her right flank and back. It causes a spasmodic hiccuping. She does not have any itching or rash in this area. She has a history of Crohn's disease says she does not use NSAIDs. She did use some hydrocodone without effect yesterday as well as Tylenol. She's had no fever or chills. She has had a mild sore throat. No cough, exertional shortness of breath, or other significant history. Allergies and Home Medications Allergies Coded Allergies: NSAIDS (Non-Steroidal Anti-Inflamma (Verified Allergy, Severe, ULCERATIVE COLITIS, 10/31/19) adalimumab (Unverified Allergy, Intermediate, HIVES, 10/31/19) Sulfa (Sulfonamide Antibiotics) (Unverified Allergy, Mild, GI UPSET, 10/31/19) azathioprine (Verified Allergy, Mild, LIVER ENZYMES, 10/31/19) codeine (Unverified Allergy, Mild, ITCHING, pt received Percocet & morphine in past, 10/31/19) latex (Unverified Allergy, Mild, RASH, 10/31/19) vedolizumab (Verified Allergy, Mild, EFFECTED LIVER, 10/31/19) gluten (Verified Allergy, Unknown, 10/31/19) milk (Verified Allergy, Unknown, 10/31/19) Uncoded Allergies: TAPE (Allergy, Intermediate, BLISTERS/RASH, 07/29/19) Home Medications Furosemide 40 Mg Tablet, 40 MG PO DAILY, (Reported) Hydroxyzine HCl 25 Mg Tablet, 25 MG PO HS PRN for SLEEP, (Reported) Levothyroxine Sodium 25 Mcg Tablet, 25 MCG PO DAILY, (Reported) Loperamide HCl 2 Mg Capsule, 2 MG PO PRN, (Reported) Multivitamin 1 Each Capsule, 1 EACH PO BID, (Reported) Spironolactone 25 Mg Tablet, 25 MG PO BID, (Reported) Tofacitinib Citrate 5 Mg Tablet, 5 MG PO BID, (Reported) Patient Home Medication List Home Medication List Reviewed: Yes Review of Systems Review of Systems Constitutional: No chills, No diaphoresis, No fever EENTM: No Blurred Vision, No Double Vision Respiratory: See HPI; Denies Cough, Denies Shortness of Air Cardiovascular: See HPI, Chest Pain; Denies Edema, Denies Irregular Heart Rate, Denies Palpitations Gastrointestinal: Denies Constipated, Denies Diarrhea, Denies Nausea Genitourinary: Denies Burning, Denies Discharge Musculoskeletal: No back pain, No joint pain Skin: No pruritus, No rash Psychiatric/Neurological: Denies Headache, Denies Numbness All Other Systems Reviewed Negative Unless Noted: Yes Past Nfwqakr-Btwrfn-Kxghxl Hx Patient Social History Alcohol Use: Denies Use Recreational Drug Use: No Smoking Status: Never a Smoker 2nd Hand Smoke Exposure: No Recent Hopitalizations: No Immunizations Up To Date Tetanus Booster (TDap): Unknown Date of Pneumonia Vaccine: Apr 29, 2011 Date of Influenza Vaccine: Apr 04, 2019 Seasonal Allergies Seasonal Allergies: No Past Medical History Surgeries: Yes ( x3, ENDOMETRIAL ABLATION; WISDOM TEETH REMOVED) Section, Hysterectomy, Tonsillectomy Respiratory: No Cardiac: No Neurological: No Reproductive Disorders: Yes (S/P ENDOMETRIAL ABLATION) Female Reproductive Disorders: Menstrual Problems Sexually Transmitted Disease: No HIV/AIDS: No Genitourinary: No Gastrointestinal: Yes Colitis, Crohns Disease, Chronic Diarrhea Musculoskeletal: No Endocrine: Yes Hypothyroidsim HEENT: Yes (GLASSES) Loss of Vision: Denies Hearing Impairment: Denies Cancer: No Psychosocial: No Anxiety, Depression Integumentary: No Blood Disorders: Yes (ANEMIA) Adverse Reaction/Blood Tranf: No (N/A) Family Medical History FH: COPD (chronic obstructive pulmonary disease) 19 FATHER Hypertension 19 MOTHER G8 BROTHER No Family History of: Boiler Repairman Physical Exam Vital Signs Vital Signs - First Documented 03/05/20 09:30 Temp 36.0 Pulse 77 Resp 16 B/P (MAP) 111/83 (92) Pulse Ox 99 O2 Delivery Room Air Capillary Refill : Height, Weight, BMI Height: 5'7.00" Weight: 168lbs. 0.0oz. 76.656421wa; 29.06 BMI Method:Stated General Appearance: WD/WN, Mild Distress HEENT: PERRL/EOMI, Moist Mucous Membranes, Other (retropharynx has some mild injection without exudate) Neck: Full Range of Motion, Normal Inspection Respiratory: Lungs Clear, Normal Breath Sounds, No Accessory Muscle Use, No Respiratory Distress Cardiovascular: Regular Rate, Rhythm, No Edema, Normal Peripheral Pulses Gastrointestinal: Normal Bowel Sounds, Non Tender, Soft Extremity: Normal Capillary Refill, Normal Inspection, No Pedal Edema Neurologic/Psychiatric: Alert, Oriented x3 Skin: Normal Color, Warm/Dry Progress/Results/Core Measures Results/Orders Lab Results Laboratory Tests Test 03/05/20 09:37 Range/Units Group A Streptococcus Screen NEGATIVE NEGATIVE My Orders Orders - BALJEET HOLLY Rapid Strep A Screen (03/05/20 09:35) Chest Pa/Lat (2 View) (03/05/20 09:35) Vital Signs/I&O 03/05/20 09:30 Temp 36.0 Pulse 77 Resp 16 B/P (MAP) 111/83 (92) Pulse Ox 99 O2 Delivery Room Air Progress Progress Note : Time: 09:44 Progress Note Rapid strep. Suspect she could be having reflux vagus nerve stimulation versus intercostal spasms related to pleurisy. We'll get a chest x-ray to look for any inflammation or infiltrate from a pneumonia that might be contributing to a pleurisy. Plan to put her on a PPI and baclofen to help with the spasming and pleurisy. Opiates do not seem to be very helpful at home. She cannot tolerate NSAIDs because of her Crohn's disease. A glucocorticoid may be helpful. Aseptic vital signs. Diagnostic Imaging Diagonstic Imaging: Xray Plain Films/CT/US/NM/MRI: chest Comments [facility], [place] NAME: CHACHO KEVIN [facility] REC#: [id number] PT STATUS: REG ER : 1975 PHYSICIAN: BALJEET HOLLY MD ADMIT DATE: 03/05/20/ER Signed Date of Exam:03/05/20 CHEST PA/LAT (2 VIEW) INDICATION: Rib pain. Comparison made with prior examination from 07/14/2016. PA and lateral views were obtained. FINDINGS: The heart size, mediastinal configuration, and pulmonary vascularity are within normal limits. There is no pleural effusion, pneumothorax, or pneumonia. The osseous structures are unremarkable. IMPRESSION: No acute cardiopulmonary abnormality. Dictated by: Dictated on workstation # [id number] Dict: 03/05/20 1005 Trans: 03/05/20 1027 [facility] [id number] Interpreted by: ANNIE BENDER MD Electronically signed by: ANNIE BENDER MD 03/05/20 1027 Reviewed: Reviewed by Me Departure Impression Primary Impression: Pleurisy Additional Impression: Intercostal myalgia Disposition: HOME, SELF-CARE Condition: Stable Departure-Patient Inst. Decision time for Depature: 11:13 Referrals: SHARON FOWLER MD (PCP/Family) Primary Care Physician Patient Instructions: Pleuritic Chest Pain (DC) Add. Discharge Instructions: Robaxin 1-2 tablets every 6 hours as necessary for chest wall pain. Tylenol 1000 mg every 8 hours as necessary for pain. Heating pads Topical creams such as icy hot or capsaicin oil Start a PPI such as omeprazole or pantoprazole daily for the next 1-2 weeks. Follow-up with primary care in the next 1-2 weeks to reassess your symptoms. Return to the nearest ER to have difficulty breathing, worsening, intractable chest pain or other worrisome symptoms. Scripts Methocarbamol (Methocarbamol) 500 Mg Tablet 500-1000 MG PO Q6H PRN for SPASMS, #30 TAB 0 Refills Prov: BALJEET HOLLY 03/05/20 Work/School Note: Work Release Form Date Seen in the Emergency Department: Mar 05, 2020 Return to Work: Mar 06, 2020 Restrictions: No Restrictions BALJEET HOLLY Mar 05, 2020 09:42
--- NOTE | 2020-03-05 10:17 | Diagnostic Imaging Report ---
INDICATION: Rib pain. Comparison made with prior examination from 07/14/2016. PA and lateral views were obtained. FINDINGS: The heart size, mediastinal configuration, and pulmonary vascularity are within normal limits. There is no pleural effusion, pneumothorax, or pneumonia. The osseous structures are unremarkable. IMPRESSION: No acute cardiopulmonary abnormality. Dictated by: Dictated on workstation # [id number]
[2020-03-05] MEDS ORDERED: METH500T7 PO (11:16)
[2020-03-05] MEDS ORDERED: ACHD5005 PO (11:22)
[2020-03-05 11:26] VITALS: BP 107/75
== END 2020-03-05 11:26 | disposition home or self-care (01) ==
LOC: EDUNIT# 09:15 → ER 09:17
DX: R09.1 Pleurisy (principal); R07.82 Intercostal pain; F41.9 Anxiety disorder, unspecified; E03.9 Hypothyroidism, unspecified; Z79.890 Hormone replacement therapy; Z88.6 Allergy status to analgesic agent; Z88.5 Allergy status to narcotic agent; Z88.2 Allergy status to sulfonamides; Z91.040 Latex allergy status; Z88.8 Allergy status to other drugs, medicaments and biological substances; Z82.49 Family history of ischemic heart disease and other diseases of the circulatory system
CPT/HCPCS: 71046; 87430

== ENCOUNTER → 2020-06-08 | Outpatient (CLI) | payer BC ==
[~2020-06-08] MED LIST changes: +ACHD5005 PO; +METH500T7 PO
--- NOTE | 2020-06-08 12:30 | Diagnostic Imaging Report ---
INDICATION: Routine screening. Comparison is made with prior mammogram from 06/06/2019 and 05/07/2018. 2-D and 3-D bilateral screening mammography was performed with CAD. Scattered fibroglandular densities are identified bilaterally. The parenchymal pattern is stable. No mass or malignant appearing microcalcifications are seen. Axillae are unremarkable. IMPRESSION: BI-RADS Category 1 No mammographic features suspicious for malignancy are identified. ACR BI-RADS Category 1: Negative. Result letter will be mailed to the patient. Note: At least 10% of breast cancer is not imaged by mammography. Dictated by: Dictated on workstation # [id number]
== END ==
LOC: RAD 08:15
PROVIDERS: ATTEND Obstetrics & Gynecology
DX: Z12.31 Encounter for screening mammogram for malignant neoplasm of breast (principal)
CPT/HCPCS: 77063; 77067

== ENCOUNTER → 2020-10-16 | Outpatient (CLI) | payer BC ==
[~2020-10-16] MED LIST changes: +METH-731 PO; -METH500T7 PO
--- NOTE | 2020-10-16 10:36 | Diagnostic Imaging Report ---
PROCEDURE: US Gallbladder. TECHNIQUE: Multiple real-time grayscale images were obtained over the right upper quadrant in various projections. INDICATION: Right upper quadrant abdominal pain. COMPARISON: Right upper quadrant ultrasound from 06/17/2018. FINDINGS: The liver is normal in size measuring 17 cm and has normal echogenicity. There is no focal hepatic mass. The main portal vein is patent with antegrade flow. The gallbladder is distended without gallstones, wall thickening, or pericholecystic fluid. Echogenic foci posterior to the neck of the gallbladder has associated dirty shadowing and is indicative of air within the adjacent bowel. The common bile duct measures up to 0.6 cm in diameter. No intrahepatic biliary dilation. The visualized portions of the pancreas are normal. Portions of the head and tail are obscured by overlying bowel gas. The right kidney is normal in size. No hydronephrosis, shadowing calculi, or suspicious mass lesion. IMPRESSION: 1. No cholelithiasis or features of acute cholecystitis. There is some adjacent small bowel gas causing echogenic shadowing at the level of the gallbladder neck. 2. No biliary duct dilatation. Dictated by: Dictated on workstation # [id number]
== END ==
LOC: RAD 08:30
PROVIDERS: ATTEND Nurse Practitioner Family
DX: R10.11 Right upper quadrant pain (principal)
CPT/HCPCS: 76705

== ENCOUNTER → 2020-10-17 | Outpatient (CLI) | payer BC ==
[~2020-10-17] MED LIST changes: +CATHETER FLUSH 10 ML SYR IV PRN
--- NOTE | 2020-10-17 14:34 | Diagnostic Imaging Report ---
INDICATION: Right upper quadrant pain and elevated liver function tests. TECHNIQUE: Patient was administered 5.3 mCi technetium 99m Choletec intravenously and imaging over the abdomen was performed. At one hour, patient ingested 8 ounces of Ensure and a gallbladder ejection fraction was calculated. Patient denied discomfort during the study. FINDINGS: There is homogeneous uptake of activity by the liver with prompt excretion of activity into the common duct with normal passage into the small bowel. There is normal uptake of activity within the gallbladder. Gallbladder ejection fraction is low at 22%. Normal values are 35% or greater. IMPRESSION: 1. Patent cystic duct and common bile duct. 2. Abnormally low gallbladder ejection fraction of 22%. Dictated by: Dictated on workstation # [id number]
== END ==
LOC: CARD 09:00
PROVIDERS: ATTEND Nurse Practitioner Family
DX: R10.11 Right upper quadrant pain (principal); R79.89 Other specified abnormal findings of blood chemistry
CPT/HCPCS: 78227; A9537

== ENCOUNTER 2021-02-27 10:03 | Outpatient (CLI) | payer BC ==
[~2021-02-27] VITALS: Ht 170 cm; Wt 84.0 kg
[~2021-02-27 10:03] MED LIST changes: -CATHETER FLUSH 10 ML SYR IV PRN
[2021-02-27] MEDS ORDERED: USTEKINUMAB IV ONE ×2 (10:30)
[2021-02-27] MEDS ORDERED: SODIUM CHLORIDE IV ONE ×2 (10:30)
[2021-02-27 12:20] VITALS: BP 108/74
[2021-02-27] MEDS ORDERED: MULT-1136 PO (15:46)
== END 2021-02-27 12:20 | disposition home or self-care (01) ==
LOC: SDC 10:03
PROVIDERS: ATTEND Internal Medicine
DX: K50.90 Crohn's disease, unspecified, without complications (principal)
CPT/HCPCS: 96365

== ENCOUNTER → 2021-06-13 | Outpatient (CLI) | payer BC ==
[~2021-06-13] MED LIST changes: +MULT-1136 PO
--- NOTE | 2021-06-13 14:38 | Diagnostic Imaging Report ---
INDICATION: Routine screening. Comparison is made with prior mammogram from 06/08/2020 and 06/06/2019. 2-D and 3-D bilateral screening mammography was performed with CAD. Scattered fibroglandular densities are identified bilaterally. The parenchymal pattern is stable. No mass or malignant-appearing microcalcifications are seen. Axillae are unremarkable. IMPRESSION: No mammographic features suspicious for malignancy are identified. BI-RADS Category 1 ACR BI-RADS Category 1: Negative. Result letter will be mailed to the patient. Note: At least 10% of breast cancer is not imaged by mammography. Dictated by: Dictated on workstation # [id number]
== END ==
LOC: RAD 11:13
PROVIDERS: ATTEND Internal Medicine
DX: Z12.31 Encounter for screening mammogram for malignant neoplasm of breast (principal)
CPT/HCPCS: 77063; 77067

== ENCOUNTER → 2021-07-26 | Outpatient (CLI) | payer BC ==
[~2021-07-26] MED LIST changes: +GADOTERATE 0.5 MMOL/ML (CLARISCAN) 15 ML VIAL IV ONE
--- NOTE | 2021-07-29 10:59 | Diagnostic Imaging Report ---
EXAMINATION: MRI lumbar spine with and without contrast. TECHNIQUE: Multiplanar, multisequence MRI of the lumbar spine was performed with and without intravenous contrast. HISTORY: Back pain. COMPARISON: None available. FINDINGS: The alignment of the lumbar spine is normal. Vertebral bodies demonstrate normal marrow signal intensity on all sequences. There are no compression fractures. The conus medullaris terminates at the level of L1. The distal spinal cord signal intensity is normal. There is a linear T1 hyperintensity within the cauda equina, consistent with fat deposition in the filum terminale. There is disc height loss and desiccation at L2-L3. Limited views of the abdomen and pelvis show no soft tissue abnormality. The aorta is normal. There is no abnormal contrast enhancement. L1-L2: There is a small disc bulge. Facet joints are normal. There is no neuroforaminal or spinal canal stenosis. L2-L3: There is a small disc bulge with mild bilateral facet arthropathy. There is no neuroforaminal or spinal canal stenosis. L3-L4: Disc is normal. There is mild bilateral facet arthropathy. No neuroforaminal or spinal canal stenosis. L4-L5: Disc is normal. There is mild bilateral facet arthropathy. No neuroforaminal or spinal canal stenosis. L5-S1: Disc is normal. Facets are normal. There is no neuroforaminal or spinal canal stenosis. 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 Dictated by: Dictated on workstation # [id number]
== END ==
LOC: RAD 08:00
DX: M47.816 Spondylosis without myelopathy or radiculopathy, lumbar region (principal); G82.20 Paraplegia, unspecified
CPT/HCPCS: 72158

== ENCOUNTER 2021-08-22 12:57 | Outpatient (RCR) | payer BC ==
[~2021-08-22 12:57] MED LIST changes: -GADOTERATE 0.5 MMOL/ML (CLARISCAN) 15 ML VIAL IV ONE
== END 2021-08-26 | disposition home or self-care (01) ==
PROVIDERS: ATTEND Nurse Practitioner Family
DX: R53.1 Weakness (principal); U09.9 Post COVID-19 condition, unspecified

== ENCOUNTER 2021-09-18 08:26 | Outpatient (RCR) | payer BC | END 2021-09-18 08:51 | disposition home or self-care (01) | PROVIDERS: ATTEND Nurse Practitioner Family | DX: R53.1 Weakness (principal); U09.9 Post COVID-19 condition, unspecified; W19.XXXA Unspecified fall, initial encounter ==

== ENCOUNTER → 2022-06-17 | Outpatient (CLI) | payer BC ==
[~2022-06-17] MED LIST changes: -TRIA1CAP4 PO; +TRIA1CAP84 PO
--- NOTE | 2022-06-17 15:43 | Diagnostic Imaging Report ---
INDICATION: Routine screening. COMPARISON: 06/13/2021 and 06/08/2020. TECHNIQUE: 2D and 3D bilateral screening mammography was performed with CAD. FINDINGS: Scattered fibroglandular densities are identified bilaterally. The parenchymal pattern is stable. No mass or malignant-appearing microcalcifications are seen. The axillae are unremarkable. IMPRESSION: No mammographic features suspicious for malignancy are identified. ACR BI-RADS Category 1: Negative. Result letter will be mailed to the patient. Note: At least 10% of breast cancer is not imaged by mammography. Dictated by: Dictated on workstation # [id number]
== END ==
LOC: RAD 11:30
PROVIDERS: ATTEND Internal Medicine
DX: Z12.31 Encounter for screening mammogram for malignant neoplasm of breast (principal)
CPT/HCPCS: 77063; 77067

== ENCOUNTER 2022-09-10 11:10 | Emergency (ER) | payer BC ==
[~2022-09-10] VITALS: Ht 170 cm; Wt 77.0 kg
[2022-09-10 11:53] LABS: BASOPHILS % (AUTO) 0 % (0-10); EOSINOPHILS # (AUTO) 0.2 10^3/uL (0.0-0.3); EOSINOPHILS % (AUTO) 2 % (0-10); HEMATOCRIT 41 % (35-52); HEMOGLOBIN 13.6 g/dL (11.5-16.0); LYMPHOCYTES # (AUTO) 1.7 10^3/uL (1.0-4.0); LYMPHOCYTES % (AUTO) 17 % (12-44); MEAN CORPUSCULAR HEMOGLOBIN 32 pg (25-34); MEAN CORPUSCULAR HGB CONC 33 g/dL (32-36); MEAN CORPUSCULAR VOLUME 96 fL (80-99); MEAN PLATELET VOLUME 9.2 fL (9.0-12.2); MONOCYTES % (AUTO) 10 % (0-12); NEUTROPHILS % (AUTO) 70 % (42-75); PLATELET COUNT 288 10^3/uL (130-400); WHITE BLOOD COUNT 9.9 10^3/uL (4.3-11.0)
--- NOTE | 2022-09-10 11:55 | ED Syncope ---
General Chief Complaint: General Problems/Pain Stated Complaint: LIGHTHEADED | WEAKNESS Nursing Triage Note: Patient ambulatory to ER w c/o passing out around 8:00am. Patient states she lost control of bowels. hx of chrons disease and graves disease. Patients spouse denies patient hitting head. Spouse caught her. Patients spouse reports patient was out for 3-5 minutes. eyes stayed open. both hands felt "airy" "like they were going to sleep on the way here." Source of Information: Patient Exam Limitations: No Limitations History of Present Illness Date Seen by Provider: Sep 10, 2022 Time Seen by Provider: 11:38 Initial Comments 47-year-old female presents to the ED with reports of a syncopal episode around 8 AM this morning. States that she was in [place] on vacation with her . Reports her and her were in the bathroom at the hotel when she felt her vision going black, she then passed out and her was able to cat ch her. Patient denies any injuries. She did not hit her head. She reports that her told her that she was out for a few minutes and her eyes were open and dilated, and she was not responding. Denies any seizure-like activity. She reports she did lose control of her bowels. Denies ever passing out previously. States prior to this she had been feeling well otherwise. Denies fevers, cough, chest pain, shortness of air, abdominal pain, nausea, vomiting. Reports that she had COVID in the middle of July. Currently she is just complaining of her hands feeling "weird." States that on the way to the ER she felt like her hands are falling asleep. She also complains of feeling weak and tired. Reports she is training and is following a diet that requires her to eat a lot, and she has been drinking a lot of water. Past medical history includes Crohn's, colitis, thyroid issues. States she had López's, which turned into Graves' disease, she currently is not on any thyroid medications because it has been stable. She only takes Stelara for her Crohn's. Timing/Prior Episodes: Single Episode Today Symptoms Prior to Episode: Other (Vision blacking out) Precipitating Factors: Standing Loss of Consciousness: Prolonged (Minutes) Current Symptoms: Back to Normal Allergies and Home Medications Allergies Coded Allergies: NSAIDS (Non-Steroidal Anti-Inflamma (Verified Allergy, Severe, ULCERATIVE COLITIS, 10/31/19) adalimumab (Unverified Allergy, Intermediate, HIVES, 10/31/19) Sulfa (Sulfonamide Antibiotics) (Unverified Allergy, Mild, GI UPSET, 10/31/19) azathioprine (Verified Allergy, Mild, LIVER ENZYMES, 10/31/19) codeine (Unverified Allergy, Mild, ITCHING, pt received Percocet & morphine in past, 10/31/19) latex (Unverified Allergy, Mild, RASH, 10/31/19) vedolizumab (Verified Allergy, Mild, EFFECTED LIVER, 10/31/19) gluten (Verified Allergy, Unknown, 10/31/19) milk (Verified Allergy, Unknown, 10/31/19) Uncoded Allergies: TAPE (Allergy, Intermediate, BLISTERS/RASH, 07/29/19) Patient Home Medication List Home Medication List Reviewed: Yes Multivitamin (Multivitamin) 1 Each Tablet, 1 EACH PO DAILY, (Reported) Entered as Reported by: BRIANNA MARTINEZ on 02/27/21 2223 Review of Systems Constitutional: see HPI Past Ogzhael-Raxrej-Tspyip Hx Patient Social History Tobacco Use?: No Substance use?: No Alcohol Use?: Yes Alcohol Frequency: Couple times a week Immunizations Up To Date Tetanus Booster (TDap): Unknown First/Initial COVID19 Vaccinat: unknown COVID19 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: [employer] Seasonal Allergies Seasonal Allergies: No Past Medical History Surgeries: Yes ( x3, ENDOMETRIAL ABLATION; WISDOM TEETH REMOVED) Section, Hysterectomy, Tonsillectomy Respiratory: No Cardiac: No Neurological: No Reproductive Disorders: Yes (S/P ENDOMETRIAL ABLATION) Female Reproductive Disorders: Menstrual Problems Sexually Transmitted Disease: No HIV/AIDS: No Genitourinary: No Gastrointestinal: Yes Colitis, Crohns Disease, Chronic Diarrhea Musculoskeletal: No Endocrine: Yes Hypothyroidsim HEENT: Yes (GLASSES) Loss of Vision: Denies Hearing Impairment: Denies Cancer: No Psychosocial: No Anxiety, Depression Integumentary: No Blood Disorders: Yes (ANEMIA) Adverse Reaction/Blood Tranf: No (N/A) Family Medical History FH: COPD (chronic obstructive pulmonary disease) 19 FATHER Hypertension 19 MOTHER G8 BROTHER No Family History of: Certified Medicine Aide Physical Exam Vital Signs Vital Signs - First Documented 09/10/22 09/10/22 11:14 13:28 Pulse 70 Resp 18 B/P (MAP) 128/85 (99) Pulse Ox 16 O2 Delivery Room Air Capillary Refill : Less Than 3 Seconds Height, Weight, BMI Height: 5'7.00" Weight: 168lbs. 0.0oz. [id number]; 26.00 BMI Method:Stated General Appearance: No Apparent Distress, WD/WN Neck: Non Tender, Supple Cardiovascular: Regular Rate, Rhythm, No Edema, No Gallop, No JVD, No Murmur Respiratory: Lungs Clear, Normal Breath Sounds, No Accessory Muscle Use, No Respiratory Distress Extremities: Normal Inspection, Normal Range of Motion Neurologic/Psychiatric: Alert, Oriented x3, No Motor/Sensory Deficits, Normal Mood/Affect, manager fleet II-XII Norm as Tested Cranial Nerves: Normal Hearing, Normal Speech, PERRL Motor/Sensory: No Motor Deficit, No Sensory Deficit Skin: Normal Color, Warm/Dry Progress/Results/Core Measures Results/Orders Lab Results Laboratory Tests Test 09/10/22 11:44 09/10/22 12:02 Range/Units White Blood Count 9.9 4.3-11.0 10^3/uL Red Blood Count 4.31 3.80-5.11 10^6/uL Hemoglobin 13.6 11.5-16.0 g/dL Hematocrit 41 35-52 % Mean Corpuscular Volume 96 80-99 fL Mean Corpuscular Hemoglobin 32 25-34 pg Mean Corpuscular Hemoglobin Concent 33 32-36 g/dL Red Cell Distribution Width 15.4 H 10.0-14.5 % Platelet Count 288 130-400 10^3/uL Mean Platelet Volume 9.2 9.0-12.2 fL Immature Granulocyte % (Auto) 0 % Neutrophils (%) (Auto) 70 42-75 % Lymphocytes (%) (Auto) 17 12-44 % Monocytes (%) (Auto) 10 0-12 % Eosinophils (%) (Auto) 2 0-10 % Basophils (%) (Auto) 0 0-10 % Neutrophils # (Auto) 7.0 1.8-7.8 10^3/uL Lymphocytes # (Auto) 1.7 1.0-4.0 10^3/uL Monocytes # (Auto) 1.0 0.0-1.0 10^3/uL Eosinophils # (Auto) 0.2 0.0-0.3 10^3/uL Basophils # (Auto) 0.0 0.0-0.1 10^3/uL Immature Granulocyte # (Auto) 0.0 0.0-0.1 10^3/uL Prothrombin Time 13.0 12.2-14.7 SEC INR Comment 0.9 0.8-1.4 Activated Partial Thromboplast Time 29 24-35 SEC D-Dimer <= 0.27 0.00-0.49 UG/ML Sodium Level 138 135-145 MMOL/L Potassium Level 4.6 3.6-5.0 MMOL/L Chloride Level 107 98-107 MMOL/L Carbon Dioxide Level 24 21-32 MMOL/L Anion Gap 7 5-14 MMOL/L Blood Urea Nitrogen 17 7-18 MG/DL Creatinine 0.74 0.60-1.30 MG/DL Estimat Glomerular Filtration Rate 101 BUN/Creatinine Ratio 23 Glucose Level 73 70-105 MG/DL Calcium Level 9.5 8.5-10.1 MG/DL Corrected Calcium 9.6 8.5-10.1 MG/DL Magnesium Level 2.2 1.6-2.4 MG/DL Total Bilirubin 0.3 0.1-1.0 MG/DL Aspartate Amino Transf (AST/SGOT) 26 5-34 U/L Alanine Aminotransferase (ALT/SGPT) 21 0-55 U/L Alkaline Phosphatase 68 40-136 U/L Troponin I < 0.028 <0.028 NG/ML Total Protein 6.9 6.4-8.2 GM/DL Albumin 3.9 3.2-4.5 GM/DL Thyroid Stimulating Hormone (TSH) 1.83 0.35-4.94 UIU/ML Urine Color YELLOW Urine Clarity CLEAR Urine pH 7.5 5-9 Urine Specific [place] 1.010 L 1.016-1.022 Urine Protein NEGATIVE NEGATIVE Urine Glucose (UA) NEGATIVE NEGATIVE Urine Ketones NEGATIVE NEGATIVE Urine Nitrite NEGATIVE NEGATIVE Urine Bilirubin NEGATIVE NEGATIVE Urine Urobilinogen 0.2 < = 1.0 MG/DL Urine Leukocyte Esterase NEGATIVE NEGATIVE Urine RBC (Auto) NEGATIVE NEGATIVE Urine RBC NONE /HPF Urine WBC NONE /HPF Urine Squamous Epithelial Cells 0-2 /HPF Urine Crystals NONE /LPF Urine Bacteria TRACE /HPF Urine Casts NONE /LPF Urine Mucus NEGATIVE /LPF Urine Culture Indicated NO My Orders Orders - LEO THAPA APRN Cbc With Automated Diff (09/10/22 11:42) Magnesium (09/10/22 11:42) Chest 1 View, Ap/Pa Only (09/10/22 11:42) Ekg Tracing (09/10/22 11:42) Comprehensive Metabolic Panel (09/10/22 11:42) Protime With Inr (09/10/22 11:42) Partial Thromboplastin Time (09/10/22 11:42) Monitor-Rhythm Ecg Trace Only (09/10/22 11:42) Ed Iv/Invasive Line Start (09/10/22 11:42) Fibrin Degradation Products (09/10/22 11:42) Troponin I [place] (09/10/22 11:42) Ua Culture If Indicated (09/10/22 11:42) Urine Bedside (09/10/22 11:42) Thyroid Stimulating Hormone (09/10/22 11:42) Ns Iv 1000 Ml (Sodium Chloride 0.9%) (09/10/22 12:00) Vital Signs/I&O 09/10/22 09/10/22 09/10/22 11:14 12:23 13:28 Pulse 70 70 68 Resp 18 B/P (MAP) 128/85 (99) 112/78 (89) 107/67 Pulse Ox 16 99 100 O2 Delivery Room Air Room Air Room Air Blood Pressure Mean: 99 Progress Progress Note #1: Time: 11:54 Progress Note Patient seen and evaluated, resting comfortably, no acute distress. Based on exam and symptoms, work-up initiated including CBC, CMP, magnesium, troponin, TSH, coags, D-dimer, chest x-ray, EKG, UA, urine ordered. IV fluids ordered. Progress Note #2: Time: 13:08 Progress Note Labs reviewed. CBC grossly normal, WBC 9.9, hemoglobin 13.6. CMP grossly normal, potassium 4.6, creatinine 0.74, magnesium 2.2, troponin negative. TSH normal 1.83. Coags negative. D-dimer negative. Urine negative. Urinalysis negative for infection. Chest x-ray reviewed. No acute findings. Results discussed with patient. At this time patient is safe for discharge. Patient is agreeable to discharge at this time. Discharge instructions and return precautions provided. Initial ECG Impression Date: Sep 10, 2022 Initial ECG Impression Time: 11:56 Initial ECG Rate: 67 Initial ECG Rhythm: Normal Sinus Initial ECG Intervals: Normal Initial ECG Impression: Nonspecific Changes Initial ECG Comparisson: Changed Comment Lead III appears inverted. Diagnostic Imaging Diagonstic Imaging: Xray Plain Films/CT/US/NM/MRI: chest Comments [facility], [place] NAME: CHACHO KEVIN [facility] REC#: [id number] PT STATUS: DEP ER : 1975 PHYSICIAN: LEO THAPA APRN ADMIT DATE: 09/10/22/ER Signed Date of Exam:09/10/22 CHEST 1 VIEW, AP/PA ONLY Indication: Chest pain. Comparison: 03/05/2020 Findings: Lungs are clear. No failure, effusion or pneumothorax. Impression: No acute-appearing abnormality. Dictated by: Dictated on workstation # [id number] Dict: 09/10/22 1215 Trans: 09/10/22 1646 [facility] 2014-1984 Interpreted by: GORDON NUNEZ Electronically signed by: GORDON NUNEZ 09/10/22 1646 Departure Impression Primary Impression: Syncope Disposition: 01 HOME, SELF-CARE Condition: Stable Departure-Patient Inst. Decision time for Depature: 13:09 Referrals: SHARON VICK MD (PCP/Family) Primary Care Physician Patient Instructions: Syncope (Fainting) (DC) Add. Discharge Instructions: Your lab work and exam is reassuring today. Follow-up with Dr. Vick. Return for chest pain, palpitations, loss consciousness, shortness of breath, severe headache, change in vision, focal numbness or weakness, or any other new, concerning, or worsening symptoms. All discharge instructions reviewed with patient and/or family. Voiced understanding. LEO THAPA APRN Sep 10, 2022 11:55
[2022-09-10] MEDS ORDERED: NS IV 1000 ML 1,000 ML IV SCH (12:00)
[2022-09-10 12:05] LABS: INR 0.9 (0.8-1.4)
[2022-09-10 12:15] LABS: BILIRUBIN,URINE NEGATIVE (NEGATIVE); CLARITY,URINE CLEAR; COLOR,URINE YELLOW; GLUCOSE, URINE (UA) NEGATIVE (NEGATIVE); KETONES,URINE NEGATIVE (NEGATIVE); LEUKOCYTE ESTERASE ,URINE NEGATIVE (NEGATIVE); NITRITE,URINE NEGATIVE (NEGATIVE); PH,URINE 7.5 (5-9); PROTEIN,URINE NEGATIVE (NEGATIVE)
--- NOTE | 2022-09-10 12:16 | Diagnostic Imaging Report ---
Indication: Chest pain. Comparison: 03/05/2020 Findings: Lungs are clear. No failure, effusion or pneumothorax. Impression: No acute-appearing abnormality. Dictated by: Dictated on workstation # [id number]
[2022-09-10 12:22] LABS: ALBUMIN 3.9 GM/DL (3.2-4.5); BILIRUBIN,TOTAL 0.3 MG/DL (0.1-1.0); CALCIUM 9.5 MG/DL (8.5-10.1); CREATININE SERUM 0.74 MG/DL (0.60-1.30); MAGNESIUM 2.2 MG/DL (1.6-2.4); TOTAL PROTEIN 6.9 GM/DL (6.4-8.2)
[2022-09-10 12:26] LABS: BACTERIA,URINE TRACE /HPF; SQUAMOUS EPITHELIAL CELL,UR 0-2 /HPF
[2022-09-10 12:26] LABS: POTASSIUM 4.6 MMOL/L (3.6-5.0)
[2022-09-10 13:28] VITALS: BP 107/67
== END 2022-09-10 13:28 | disposition home or self-care (01) ==
LOC: EDUNIT# 11:10 → ER 11:13
DX: R55 Syncope and collapse (principal)
CPT/HCPCS: 36415; 71045; 80053; 81000; 83735; 84443; 84484; 84703; 85025; 85379; 85610; 85730; 93005; 93041

== ENCOUNTER → 2023-02-04 | Outpatient (CLI) | payer BC | END | disposition home or self-care (01) | LOC: PREOP 06:53 | PROVIDERS: ATTEND Internal Medicine | DX: Z01.818 Encounter for other preprocedural examination (principal) ==